=== PATIENT | female | born 1950 | race Caucasian/White ===

== ENCOUNTER → 2017-06-16 | Outpatient (CLI) | payer BC ==
[~2017-06-16] MED LIST: AMLO10CA PO; ATEN50TA8 PO
--- NOTE | 2017-06-17 14:02 | MAMMOGRAPHY REPORT ---
BILATERAL DIGITAL SCREENING MAMMOGRAM TOMOSYNTHESIS WITH CAD: 06/16/2017 CLINICAL HISTORY: Routine screening. Patient has no complaints. TECHNIQUE: Breast tomosynthesis in addition to standard 2D mammography was performed. Current study was also evaluated with a Computer Aided Detection (CAD) system. COMPARISON: Comparison is made to exams dated: 06/12/2016 mammogram, 05/14/2015 mammogram, 05/09/2014 mamm ogram, 05/08/2013 mammogram, 05/03/2012 mammogram, and 04/29/2012 mammogram - [facility] BREAST COMPOSITION: There are scattered areas of fibroglandular density in both breasts. FINDINGS: No suspicious masses, calcifications, or areas of architectural distortion are noted in ei ther breast. There has been no significant interval change compared to prior exams. IMPRESSION: ACR BI-RADS CATEGORY 1: NEGATIVE There is no mammographic evidence of malignancy. A 1 year screening mammogram is recommended. The pa tient will receive written notification of the results. Approximately 10% of breast cancers are not detected with mammography. A negative mammographic report should not delay biopsy if a clinically suggestive mass is present. Jacqueline Trejo M.D. /:06/16/2017 16:28:16 Engagement Specialist: Mindy Linares [facility] letter sent: Normal 1/2 BI-RADS Code: ACR BI-RADS Category 1: Negative
== END | disposition home or self-care (01) ==
LOC: C.MAMM 07:51
PROVIDERS: ATTEND Nurse Practitioner Adult Health
DX: Z12.31 Encounter for screening mammogram for malignant neoplasm of breast (principal)

== ENCOUNTER → 2017-06-23 | Outpatient (CLI) | payer BC ==
[2017-06-23 17:49] LABS: BLOOD UREA NITROGEN 7 mg/dl (7-18); BUN/CREATININE RATIO 12.9 (10-20); CREATININE 0.56 mg/dl (0.60-1.20)
[2017-06-30 21:38] LABS: ANTI-CENTROMERE AB <1.0 NEG AI (<1.0 NEG); ANTI-SS-A <1.0 NEG AI (<1.0 NEG); ANTI-SS-B <1.0 NEG AI (<1.0 NEG); DNA ds CRITHIDIA NEGATIVE (NEGATIVE); MICROSOMAL AB 628 IU/ML (<9); Sm Antibody <1.0 NEG AI (<1.0 NEG)
[2017-07-02 09:02] LABS: ANA TITER 1:40 TITER (<1:40)
== END | disposition home or self-care (01) ==
LOC: C.LAB1850 15:52
PROVIDERS: ATTEND Internal Medicine Infectious Disease
DX: G62.9 Polyneuropathy, unspecified (principal); G37.9 Demyelinating disease of central nervous system, unspecified

== ENCOUNTER → 2017-07-01 | Outpatient (CLI) | payer BC ==
[~2017-07-01] MED LIST changes: +GADAVIST IV PRN
--- NOTE | 2017-07-01 09:35 | DIAGNOSTIC IMAGING REPORT ---
BRAIN COMBO FOR MS CLINICAL HISTORY: Demyelinating disorder. COMPARISON STUDY: No previous studies for comparison. TECHNIQUE: Utilizing a 1.5 Diane magnet and dedicated coil, multiplanar, multiecho imaging of the brain was performed pre and postcontrast administration. Injection of 5.5 cc of Gadavist IV was uneventful. This exam was performed according to multiple sclerosis protocol. FINDINGS: There are no areas of restricted diffusion. No acute intracranial hemorrhage, midline shift or mass effect is present. Ventricular system is normal. Basilar cisterns are patent. There is no extra-axial collections. Flow-voids for the major intracranial vessels are present. There is no intracranial mass or pathologic enhancement. Faint linear enhancement within the right aspect of the deshawn could reflect a developmental venous anomaly or capillary telangiectasia. This is of no clinical significance. There are multiple supratentorial white matter T2 hyperintense foci. These are nonspecific and may reflect small vessel disease. No signal abnormalities are identified within the infratentorial brain. Calvarial signal is maintained. Orbits are unremarkable. Mild mucosal thickening of the left anterior ethmoid air cells is noted. IMPRESSION: 1. No acute intracranial findings. 2. No intracranial mass or pathologic enhancement. 3. Multiple supratentorial white matter T2 hyperintense foci. These are nonspecific and statistically reflect small vessel disease. Demyelinating disorders are within the differential although there are no findings to strongly suggest multiple sclerosis on this exam. Electronically signed by: Shawn Anaya M.D. 07/01/2017 9:33 AM Dictated Date/Time: 07/01/2017 9:24 AM
== END | disposition home or self-care (01) ==
LOC: C.MRI 08:09
PROVIDERS: ATTEND Internal Medicine Infectious Disease
DX: G37.9 Demyelinating disease of central nervous system, unspecified (principal)

== ENCOUNTER → 2017-07-15 | Outpatient (CLI) | payer BC ==
[~2017-07-15] MED LIST changes: -GADAVIST IV PRN
[2017-07-15 12:15] LABS: BASO % 2.6 %; BASO ABS # 0.19 K/uL (0-0.2); COMPLETE YES; EOS % 2.1 %; HEMATOCRIT 46.1 % (37-47); IG% 0.1 %; LYMPH % 47.6 %; LYMPH ABS # 3.41 K/uL (1.2-3.4); MEAN CELL VOLUME 91.5 fL (80-100); MEAN CORPUSCULAR HEMOGLOBIN 30.8 pg (25-34); MEAN CORPUSCULAR HGB CONC 33.6 g/dl (32-36); MEAN PLATELET VOLUME 10.4 fL (7.4-10.4); MONO % 11.4 %; NEUT % 36.2 %; PLATELET COUNT 262 K/uL (130-400); RED BLOOD COUNT 5.04 M/uL (4.2-5.4); WHITE BLOOD COUNT 7.17 K/uL (4.8-10.8)
[2017-07-15 12:51] LABS: C-REACTIVE PROTEIN < 0.29 mg/dl (0-0.29)
[2017-07-15 14:39] LABS: LYME DISEASE AB IGG POS (NEG); LYME DISEASE AB IGM EQUIVOCAL (NEG)
[2017-07-17 12:30] LABS: ALBUMIN 4.7 G/DL (3.8-4.8); B2 GLYCOPROTEIN IGA <9 SAU (<=20); B2 GLYCOPROTEIN IGG <9 SGU (<=20); B2 GLYCOPROTEIN IGM <9 SMU (<=20); DRVVT MIX INTERPRETAION Not Indicated; IMMUNOFIXATION IGA SERUM 295 MG/DL (81-463); IMMUNOFIXATION IGG SERUM 2081 MG/DL (694-1618); IMMUNOFIXATION IGM SERUM 222 MG/DL (48-271); LAC PTT SCREEN 35 sec (<=40); TOTAL PROTEIN 8.3 G/DL (6.2-8.3)
[2017-07-19 15:22] LABS: 18KDIGG BAND REACTIVE (NONREACTIVE); 23KDIGG BAND NONREACTIVE (NONREACTIVE); 23KDIGM BAND REACTIVE (NONREACTIVE); 28KDIGG BAND NONREACTIVE (NONREACTIVE); 30KDIGG BAND NONREACTIVE (NONREACTIVE); 39KDIGG BAND REACTIVE (NONREACTIVE); 39KDIGM BAND REACTIVE (NONREACTIVE); 41KDIGG BAND REACTIVE (NONREACTIVE); 41KDIGM BAND REACTIVE (NONREACTIVE); 45KDIGG BAND NONREACTIVE (NONREACTIVE); 58KDIGG BAND REACTIVE (NONREACTIVE); 66KDIGG BAND REACTIVE (NONREACTIVE); 93KDIGG BAND REACTIVE (NONREACTIVE)
== END | disposition home or self-care (01) ==
LOC: C.LAB1850 10:52
PROVIDERS: ATTEND Internal Medicine
DX: R89.4 Abnormal immunological findings in specimens from other organs, systems and tissues (principal); R20.2 Paresthesia of skin; C91.Z0 Other lymphoid leukemia not having achieved remission

== ENCOUNTER → 2018-01-13 | Outpatient (CLI) | payer OTHER ==
[2018-01-13 10:04] LABS: BASO ABS # 0.23 K/uL (0-0.2); EOS % 2.5 %; EOS ABS # 0.19 K/uL (0-0.5); HEMATOCRIT 45.1 % (37-47); HEMOGLOBIN 16.3 g/dL (12.0-16.0); IG# 0.01 K/uL (0.00-0.02); LYMPH % 27.4 %; LYMPH ABS # 2.09 K/uL (1.2-3.4); MEAN CELL VOLUME 90.7 fL (80-100); MEAN CORPUSCULAR HEMOGLOBIN 32.8 pg (25-34); MEAN CORPUSCULAR HGB CONC 36.1 g/dl (32-36); MEAN PLATELET VOLUME 10.7 fL (7.4-10.4); MONO % 26.5 %; MONO ABS # 2.02 K/uL (0.11-0.59); NEUT % 40.5 %; NEUT ABS # 3.08 K/uL (1.4-6.5); PLATELET COUNT 259 K/uL (130-400); RED CELL DISTRIBUTION WIDTH CV 13.2 % (11.5-14.5); RED CELL DISTRIBUTION WIDTH SD 43.8 fL (36.4-46.3); WHITE BLOOD COUNT 7.62 K/uL (4.8-10.8)
[2018-01-13 10:31] LABS: ALBUMIN 3.6 gm/dl (3.4-5.0); ALT/SGPT 64 U/L (12-78); BLOOD UREA NITROGEN 8 mg/dl (7-18); CALCIUM 9.1 mg/dl (8.5-10.1); CARBON DIOXIDE 26 mmol/L (21-32); CREATININE 0.62 mg/dl (0.60-1.20); GLUCOSE 96 mg/dl (70-99); POTASSIUM 4.1 mmol/L (3.5-5.1); SODIUM 129 mmol/L (136-145)
[2018-01-13 10:34] LABS: ALKALINE PHOSPHATASE 103 U/L (45-117); AST/SGOT 64 U/L (15-37); TOTAL PROTEIN 8.3 gm/dl (6.4-8.2)
== END | disposition home or self-care (01) ==
LOC: C.LAB1850 09:00
PROVIDERS: ATTEND Internal Medicine Hematology & Oncology
DX: C91.Z0 Other lymphoid leukemia not having achieved remission (principal); F10.20 Alcohol dependence, uncomplicated; E51.11 Dry beriberi; I10 Essential (primary) hypertension; Z72.0 Tobacco use

== ENCOUNTER → 2018-06-20 | Outpatient (CLI) | payer OTHER ==
--- NOTE | 2018-06-20 13:10 | MAMMOGRAPHY REPORT ---
BILATERAL DIGITAL SCREENING MAMMOGRAM TOMOSYNTHESIS WITH CAD: 06/20/2018 CLINICAL HISTORY: Routine screening. Patient has no complaints. TECHNIQUE: The study was acquired using full field digital technology and interpreted from soft copy. Breast tomosynthesis in addition to standard 2D mammography was performed. Current study was also ev aluated with a Computer Aided Detection (CAD) system. COMPARISON: Comparison is made to exams dated: 06/16/2017 mammogram, 06/12/2016 mammogram, 05/14/2015 mamm ogram, 05/09/2014 mammogram, 05/08/2013 mammogram, and 05/03/2012 mammogram - [facility] . BREAST COMPOSITION: There are scattered areas of fibroglandular density in both breasts. FINDINGS: There are stable focal asymmetries in each upper outer quadrant. Benign rim calcifications in the right breast. No suspicious mass, architectural distortion or cluster of microcalcifications is seen. IMPRESSION: ACR BI-RADS CATEGORY 1: NEGATIVE There is no mammographic evidence of malignancy. A 1 year screening mammogram is recommended.( [id number]) The patient will receive written notification of the results. Some breast cancers are not detected with mammography. A negative mammographic report should not ryan y biopsy if a clinically suggestive mass is present. Agnse Ji M.D. ay/:06/20/2018 09:29:20 Desktop Engineer: RT Elvia(R)(M), [facility] letter sent: Normal 1/2 BI-RADS Code: ACR BI-RADS Category 1: Negative
== END | disposition home or self-care (01) ==
LOC: C.MAMM 08:04
PROVIDERS: ATTEND Nurse Practitioner Adult Health
DX: Z12.31 Encounter for screening mammogram for malignant neoplasm of breast (principal)

== ENCOUNTER 2021-06-23 14:29 | Inpatient (IN) ==
--- NOTE | 2021-06-23 16:01 | Emergency Department Note ---
Impression & Plan Acute hyponatremia, Left arm weakness, Alcohol use, Weakness, Falling ED Provider Note NAME: SALINA HAQUE AGE: 70 SEX: F : 1950 ARRIVES VIA: Walk-In INFORMANT: [Patient][sister] ED PROVIDER(S): [Irving Serrato MD] Patient first seen by me at 1545 CHIEF COMPLAINT: Weakness HISTORY OF PRESENT ILLNESS: The patient is a 70-year-old female who presents with months of weakness which seems to be escalating. She has fallen several times. She has abrasions and so me skin tears to her extremities. She primarily has noticed some weakness in the left arm especially, the distal left arm. No facial droop, no speech slur. She has not had any drooling. She denies any issues with her left leg. The patient denies fever. No cough or congestion or shortness of breath. No headache. She has lost weight. The patient does not have any current diarrhea although a month ago, she was having diarrhea. No vomiting. The patient was brought today by her family as they are very concerned about her increasing weakness and her falling. As per her family, she has has been somewhat confused at times. On further questioning, the patient drinks at least 4 beers daily. REVIEW OF SYSTEMS: See HPI for pertinent positives and negatives. A total of ten systems were reviewed and were otherwise negative. PMHx/PSHx: See Below SOCIAL HISTORY: See Below. PHYSICAL EXAM: GENERAL: Patient is in no acute distress. HEENT: No acute trauma, normocephalic atraumatic, mucous membranes moist, no nasal congestion, no scleral icterus. NECK: No stridor, no adenopathy, no meningismus, trachea is midline. LUNGS: Diminished breath sounds bilaterally, no wheezing or rhonchi, breath sounds are equal. No respiratory distress. HEART: Without murmurs gallops or rubs, regular rate and rhythm. ABDOMEN: Soft, nontender, bowel sounds positive, no hernias, no peritonitis. EXTREMITIES: No cyanosis. The patient has some edema of her left hand. She cannot extend the left wrist and has difficulty extending her left elbow. Flexion of the elbow and wrist seems intact. Left shoulder shrug is intact and equal to the right. No gross deformity to the left upper extremity. She has skin tears to her extremities, no signs of surrounding erythema to suggest infection. Contusions of different ages are noted to her extremities as well. NEUROLOGIC: Oriented x 3, no deficits to the lower extremities. No facial droop or speech slur. She has difficulty with extension of the left wrist and left elbow. Flexion of the left elbow appears intact. Shoulder shrug on the left is intact. Hand grasp is a bit weak on the left but she does have this function. SKIN: No rash, no jaundice, no diaphoresis. DIFFERENTIAL DIAGNOSIS: Infection, dehydration, metabolic abnormality, hypo/hyperglycemia, electrolyte disturbance, malignancy, radial nerve palsy, anemia, hypoxia, cardiac sources, intracerebral event, toxicologic issues, stroke, TIA, as well as other pathologies. EMERGENCY DEPARTMENT COURSE/PROCEDURES: ECG: Indication was weakness. The ECG shows a normal sinus rhythm with some baseline artifact. There are some inverted T waves in the anterior leads. No ST elevation, no PVCs. The rate is 69. The QTc is 477. Continuous Cardiac Monitoring: An order was placed for continuous cardiac monitoring. The monitor shows a rate of 80 with normal sinus rhythm. Critical Care Note: I have personally spent 35 minutes of critical care time in the direct management of this patient. This includes bedside care, interpretation of diagnostic studies, and testing, discussion with consultants, patient, and family members, and other required patient management activities. This 35 minutes is in excess of all separately billable procedures. MEDICAL DECISION MAKING: There is no leukocytosis or concerning anemia. There is a normal platelet count. No coagulopathy. Sodium is quite low at 126. No kidney failure. Lactic acid level was elevated consistent with infection versus dehydration. No concerning elevation to the total CK. LFTs were somewhat elevated consistent potentially with alcohol use. The patient had a higher TSH but the T4 was normal. Urinalysis did not show infection. Alcohol level was elevated at 87. Covid testing is pending. Chest x-ray did not show pneumonia or CHF. Brain CT showed no acute bleed or mass-effect. CT angio of the head and neck did not show any significant stenosis or clot. An incidental aneurysm was seen in the neck. Films of the left elbow, left forearm left first were done, there was no fracture. On exam, the patient was frail, she had multiple areas of skin tear to her extremities. She had different age contusions on her extremities. She appeared to have at least a left radial nerve palsy. The patient is in need of a hospital stay. She has multiple findings that warrant care inside the hospital. She is not safe for discharge home. I did speak with her and her sister about my findings. I did talk to case management. The on-call hospitalist was consulted. During the patient's ED stay, she was given a banana bag, this consisted of IV saline, multivitamins and thiamine and folate. Past Med/Surg History Medical History Hypertension Impaired memory per pt, feels she is getting very forgetful Poor historian Pt reports she is slow to wake up after anesthesia. After asking the questions, no surgeries were reported. So then asked her specifically "what all surgeries have you had?" She states, "I'm not really sure, I had something to check something, but I don't know what it was." Surgical History No history of previous surgery pt unsure Family History Other Unknown family medical history Social History Smoking Status: Current every day smoker Cigarettes Per Day: 2 ppd; Second Hand Exposure: Yes; Hx Alcohol Use: Yes Alcohol type: beer Hx Substance Use: No Preferred Language: Tongan Communication Ability: Effective [employer] Associate Required: No Beliefs That Will Affect Care: None Current Living Situation: Alone Feels Safe at Home: Yes Assistive Devices: Glasses Allergies Allergies Allergy/AdvReac Type Severity Reaction Status Date / Time clindamycin Allergy Unknown RASH Verified 06/23/21 16:34 Penicillins Allergy Unknown RASH Verified 06/23/21 16:34 Home Meds Home Medications Medication Instructions Recorded Confirmed amlodipine 10 mg tablet 10 mg PO QAM 06/11/21 06/23/21 atenolol 50 mg tablet 50 mg PO QAM 06/11/21 06/23/21 benazepril 20 mg tablet 20 mg PO QAM 06/11/21 06/23/21 Results & Data (ED) Vital Signs Vital Signs - 24 hr 06/23/21 14:35 06/23/21 15:35 06/23/21 15:40 Temperature 36.3 C L Temperature Source Temporal Artery Scan Pulse Rate 83 75 Pulse Rate [Apical] 80 Pulse Rhythm [Apical] Regular Respiratory Rate 18 16 16 Respiratory Effort / Characteristics Non-Labored Spontaneous Non-Labored Respiratory Depth Normal Normal Blood Pressure 121/79 105/68 Blood Pressure [Right Arm] 105/68 Blood Pressure Mean 93 80 Blood Pressure Mean [Right Arm] 80 Pulse Oximetry 94 96 97 Oxygen Delivery Method Room Air Room Air Sepsis Recent Fever Within 48 Hours No Sepsis New/Unexplained Change in Mental Status N/A Sepsis Action Taken by Nursing No Action Required 06/23/21 15:58 06/23/21 16:52 06/23/21 17:06 Temperature Temperature Source Pulse Rate 89 75 Pulse Rate [Apical] Pulse Rhythm [Apical] Respiratory Rate 14 16 Respiratory Effort / Characteristics Respiratory Depth Blood Pressure 101/63 Blood Pressure [Right Arm] Blood Pressure Mean 75 Blood Pressure Mean [Right Arm] Pulse Oximetry 98 95 Oxygen Delivery Method Room Air Sepsis Recent Fever Within 48 Hours Sepsis New/Unexplained Change in Mental Status Sepsis Action Taken by Long Term Medications Current Medication List: was personally reviewed by me Laboratory Data Attestation: I reviewed the patient's lab results. Result diagrams: 06/23/21 15:40 06/23/21 15:40 Lab Results 06/23/21 06/23/21 06/23/21 Range/Units 15:40 15:40 15:40 WBC 5.58 (4.8-10.8) K/uL RBC 3.92 L (4.2-5.4) M/uL Hgb 13.2 (12.0-16.0) g/dL Hct 36.5 L (37-47) % MCV 93.1 (80-100) fL MCH 33.7 (25-34) pg MCHC 36.2 H (32-36) g/dL RDW Std Deviation 47.7 H (36.4-46.3) fL RDW Coeff of Eriberto 14.0 (11.5-14.5) % Plt Count 197 (130-400) K/uL MPV 10.6 H (7.4-10.4) fL Immature Gran % (Auto) 0.2 % Neut % (Auto) 43.4 % Lymph % (Auto) 36.0 % Glades % (Auto) 17.2 % Eos % (Auto) 0.5 % Baso % (Auto) 2.7 % Neut # (Auto) 2.42 (1.4-6.5) K/uL Lymph # (Auto) 2.01 (1.2-3.4) K/uL Glades # (Auto) 0.96 H (0.11-0.59) K/uL Eos # (Auto) 0.03 (0-0.5) K/uL Baso # (Auto) 0.15 (0-0.2) K/uL Immature Gran # (Auto) 0.01 (0.00-0.02) K/uL PT 10.9 (9.0-12.0) Seconds INR 1.1 (0.9-1.1) APTT 27.6 (21.0-31.0) Seconds PTT Ratio 1.0 Sodium 126 L (136-145) mmol/L Potassium 3.6 (3.5-5.1) mmol/L Chloride 94 L (98-107) mmol/L Carbon Dioxide 26 (21-32) mmol/L Anion Gap 6.0 (3-11) BUN 2 L (7-18) mg/dl Creatinine 0.39 L (0.6-1.2) mg/dl Est Cr Clr Drug Dosing 106.8 ml/min Est GFR ( Amer) 125.1 ml/min Est GFR (Non-Af Amer) 107.9 ml/min BUN/Creatinine Ratio 5.6 L (10-20) Glucose 78 (70-99) mg/dl Lactate (0.4-2.0) mmol/L Calcium 8.5 (8.5-10.1) mg/dl Magnesium 2.4 (1.8-2.4) mg/dl Total Bilirubin 0.8 (0.2-1) mg/dl AST 138 H (15-37) U/L ALT 89 H (12-78) U/L Alkaline Phosphatase 140 H (45-117) U/L Total Creatine Kinase 418 H (26-192) U/L Troponin I < 0.015 (0-0.045) ng/ml Total Protein 7.3 (6.4-8.2) gm/dl Albumin 3.1 L (3.4-5.0) gm/dl Globulin 4.2 H (2.5-4.0) gm/dl Albumin/Globulin Ratio 0.7 L (0.9-2) TSH 6.420 H (0.300-4.500) uIu/ml Free T4 0.80 (0.8-1.6) ng/dl Urine Color Urine Appearance (Clear) Urine pH (4.5-7.5) Ur Specific [place] (1.000-1.030) Urine Protein (Negative) Urine Glucose (UA) (Negative) Urine Ketones (Negative) Urine Blood (Negative) Urine Nitrite (Negative) Urine Bilirubin (Negative) Urine Urobilinogen (Negative) Ur Leukocyte Esterase (Negative) Ethyl Alcohol mg/dL (0-3) mg/dl COVID-19 Eval Order 06/23/21 06/23/21 06/23/21 Range/Units 16:30 16:30 16:40 WBC (4.8-10.8) K/uL RBC (4.2-5.4) M/uL Hgb (12.0-16.0) g/dL Hct (37-47) % MCV (80-100) fL MCH (25-34) pg MCHC (32-36) g/dL RDW Std Deviation (36.4-46.3) fL RDW Coeff of Eriberto (11.5-14.5) % Plt Count (130-400) K/uL MPV (7.4-10.4) fL Immature Gran % (Auto) % Neut % (Auto) % Lymph % (Auto) % Glades % (Auto) % Eos % (Auto) % Baso % (Auto) % Neut # (Auto) (1.4-6.5) K/uL Lymph # (Auto) (1.2-3.4) K/uL Glades # (Auto) (0.11-0.59) K/uL Eos # (Auto) (0-0.5) K/uL Baso # (Auto) (0-0.2) K/uL Immature Gran # (Auto) (0.00-0.02) K/uL PT (9.0-12.0) Seconds INR (0.9-1.1) APTT (21.0-31.0) Seconds PTT Ratio Sodium (136-145) mmol/L Potassium (3.5-5.1) mmol/L Chloride (98-107) mmol/L Carbon Dioxide (21-32) mmol/L Anion Gap (3-11) BUN (7-18) mg/dl Creatinine (0.6-1.2) mg/dl Est Cr Clr Drug Dosing ml/min Est GFR ( Amer) ml/min Est GFR (Non-Af Amer) ml/min BUN/Creatinine Ratio (10-20) Glucose (70-99) mg/dl Lactate 2.4 H* (0.4-2.0) mmol/L Calcium (8.5-10.1) mg/dl Magnesium (1.8-2.4) mg/dl Total Bilirubin (0.2-1) mg/dl AST (15-37) U/L ALT (12-78) U/L Alkaline Phosphatase (45-117) U/L Total Creatine Kinase (26-192) U/L Troponin I (0-0.045) ng/ml Total Protein (6.4-8.2) gm/dl Albumin (3.4-5.0) gm/dl Globulin (2.5-4.0) gm/dl Albumin/Globulin Ratio (0.9-2) TSH (0.300-4.500) uIu/ml Free T4 (0.8-1.6) ng/dl Urine Color Yellow Urine Appearance Clear (Clear) Urine pH 6.5 (4.5-7.5) Ur Specific [place] 1.002 (1.000-1.030) Urine Protein Negative (Negative) Urine Glucose (UA) Negative (Negative) Urine Ketones Negative (Negative) Urine Blood Negative (Negative) Urine Nitrite Negative (Negative) Urine Bilirubin Negative (Negative) Urine Urobilinogen Negative (Negative) Ur Leukocyte Esterase Negative (Negative) Ethyl Alcohol mg/dL 87.0 H (0-3) mg/dl COVID-19 Eval Order 06/23/21 Range/Units 17:50 WBC (4.8-10.8) K/uL RBC (4.2-5.4) M/uL Hgb (12.0-16.0) g/dL Hct (37-47) % MCV (80-100) fL MCH (25-34) pg MCHC (32-36) g/dL RDW Std Deviation (36.4-46.3) fL RDW Coeff of Eriberto (11.5-14.5) % Plt Count (130-400) K/uL MPV (7.4-10.4) fL Immature Gran % (Auto) % Neut % (Auto) % Lymph % (Auto) % Glades % (Auto) % Eos % (Auto) % Baso % (Auto) % Neut # (Auto) (1.4-6.5) K/uL Lymph # (Auto) (1.2-3.4) K/uL Glades # (Auto) (0.11-0.59) K/uL Eos # (Auto) (0-0.5) K/uL Baso # (Auto) (0-0.2) K/uL Immature Gran # (Auto) (0.00-0.02) K/uL PT (9.0-12.0) Seconds INR (0.9-1.1) APTT (21.0-31.0) Seconds PTT Ratio Sodium (136-145) mmol/L Potassium (3.5-5.1) mmol/L Chloride (98-107) mmol/L Carbon Dioxide (21-32) mmol/L Anion Gap (3-11) BUN (7-18) mg/dl Creatinine (0.6-1.2) mg/dl Est Cr Clr Drug Dosing ml/min Est GFR ( Amer) ml/min Est GFR (Non-Af Amer) ml/min BUN/Creatinine Ratio (10-20) Glucose (70-99) mg/dl Lactate (0.4-2.0) mmol/L Calcium (8.5-10.1) mg/dl Magnesium (1.8-2.4) mg/dl Total Bilirubin (0.2-1) mg/dl AST (15-37) U/L ALT (12-78) U/L Alkaline Phosphatase (45-117) U/L Total Creatine Kinase (26-192) U/L Troponin I (0-0.045) ng/ml Total Protein (6.4-8.2) gm/dl Albumin (3.4-5.0) gm/dl Globulin (2.5-4.0) gm/dl Albumin/Globulin Ratio (0.9-2) TSH (0.300-4.500) uIu/ml Free T4 (0.8-1.6) ng/dl Urine Color Urine Appearance (Clear) Urine pH (4.5-7.5) Ur Specific [place] (1.000-1.030) Urine Protein (Negative) Urine Glucose (UA) (Negative) Urine Ketones (Negative) Urine Blood (Negative) Urine Nitrite (Negative) Urine Bilirubin (Negative) Urine Urobilinogen (Negative) Ur Leukocyte Esterase (Negative) Ethyl Alcohol mg/dL (0-3) mg/dl COVID-19 Eval Order Covid19 at [facility] Administered Medications Discontinued Medications Ioversol (Optiray 320 125ml) 120 ml IV ONCE ONE Stop: 06/23/21 16:43 Last Admin: 06/23/21 16:42 Dose: 120 ml Documented by: [id number] Imaging Data Radiologist's Impression: Chest X-Ray 06/23/21 15:58 XR chest 1V portable HISTORY: weakness COMPARISON: Chest 07/16/2006. FINDINGS: No pneumothorax. No pleural effusions. Mild interstitial thickening at the lung bases. This is likely chronic. There is a linear scarlike density within the right lower lobe. The heart is normal in size. The lungs are hyperexpanded with apical predominant emphysematous changes. No new focal lung consolidations to suggest pneumonia. No evidence for pulmonary edema. IMPRESSION: No significant change compared to the prior study. No acute process. ACT 112: Negative or not required by law. Electronically signed by: Romeo Jha M.D. 06/23/2021 4:[address] 06/23/21 15:[address] OF THE BRAIN; CT ANGIOGRAM OF THE BRAIN; CT ANGIOGRAM OF THE NECK CLINICAL HISTORY: Left-sided weakness and numbness. COMPARISON STUDY: MRI of the brain dated 07/01/2017. TECHNIQUE: Unenhanced axial CT scan of the brain is performed. Subsequently, following the IV administration of 120 of Optiray 320, CT angiogram of the head and neck was performed from the aortic arch to the vertex. Images are reviewed i n the axial, sagittal, and coronal planes. 3-D MIPS images are created and assessed. IV contrast was administered without complication. All measurements were calculated based on NASCET criteria. A dose lowering technique was utilized adhering to the principles of ALARA. CT DOSE: 843.91 mGy.cm FINDINGS: Brain parenchyma: There is age-related involutional change noting mild to moderate patchy subcortical and periventricular microangiopathic disease. There is no hemorrhage, mass effect, or evidence of acute territorial ischemia by CT criteria. There is no evidence of enhancing mass lesion on the angiogram phase images. The ventricles, sulci, and cisterns are prominent secondary to involutional change. Lai-white matter differentiation is preserved. No extra- axial fluid collection is seen. Thoracic aorta: Visualized portions of the thoracic aorta are normal in caliber. The aortic arch demonstrates 4-vessel variant anatomy. The left vertebral artery arises directly from the thoracic aorta. Right carotid arterial system: The right common carotid artery is widely patent, as are the right internal and external carotid arteries. Minimal plaque is seen in the carotid bulb. Left carotid arterial system: The left common carotid artery is widely patent, as are the left internal and external carotid arteries. Mild plaque is noted in the carotid bulb. Vertebral arteries: The vertebral arteries are widely patent bilaterally noting a right-sided dominance. 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 This is located at the level of C7. Subclavian arteries: Widely patent bilaterally. Intracranial vasculature: There is atherosclerotic calcification of the cavernous carotid arteries. There is a large right posterior indicating artery. There is ectasia of the internal carotid arteries bilaterally. The internal carotid arteries are patent at the skull base, as are the anterior and middle cerebral arteries bilaterally. The vertebrobasilar system and posterior cerebral arteries are widely patent. The right P1 segment is diminutive. The right vertebral artery is dominant. No definite aneurysm is identified. There is no high-grade stenosis or focal vessel cutoff identified. Jugular veins: Patent bilaterally. Dural sinuses: Patent. Lung apices: Emphysematous change is noted. Upper lobe lung parenchyma is otherwise clear as imaged. Soft tissues: The visualized pharyngeal soft tissues are normal in appearance noting angiographic phase technique. The oropharyngeal airway appears widely patent. The salivary and thyroid glands are normal in appearance. No cervical lymphadenopathy is seen. Skeletal structures: The skeletal structures are osteopenic. The calvarium ap pears intact. The cervical spine is maintained noting mild multilevel spondylosis. No lytic or blastic lesion is seen. Orbits: The bony orbits are intact. Orbital contents are normal as visualized. Sinuses and mastoids: The paranasal sinuses are clear. The mastoid air cells are well pneumatized. IMPRESSION: 1. There is no hemorrhage, mass effect, or evidence of acute territorial ischemia by CT criteria. 2. Unremarkable CT angiogram of the brain. 3. 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 4. Otherwise unremarkable CT angiogram of the neck. 5. Emphysema. ACT 112: Negative or not required by law. Electronically signed by: Irving Lopez M.D. 06/23/2021 5:09 PM Head CTA 06/23/21 15:[address] OF THE BRAIN; CT ANGIOGRAM OF THE BRAIN; CT ANGIOGRAM OF THE NECK CLINICAL HISTORY: Left-sided weakness and numbness. COMPARISON STUDY: MRI of the brain dated 07/01/2017. TECHNIQUE: Unenhanced axial CT scan of the brain is performed. Subsequently, following the IV administration of 120 of Optiray 320, CT angiogram of the head and neck was performed from the aortic arch to the vertex. Images are reviewed in the axial, sagittal, and coronal planes. 3-D MIPS images are created and assessed. IV contrast was administered without complication. All measurements were calculated based on NASCET criteria. A dose lowering technique was utilized adhering to the principles of ALARA. CT DOSE: 843.91 mGy.cm FINDINGS: Brain parenchyma: There is age-related involutional change noting mild to moderate patchy subcortical and periventricular microangiopathic disease. There is no hemorrhage, mass effect, or evidence of acute territorial ischemia by CT criteria. There is no evidence of enhancing mass lesion on the angiogram phase images. The ventricles, sulci, and cisterns are prominent secondary to involutional change. Lai-white matter differentiation is preserved. No extra- axial fluid collection is seen. Thoracic aorta: Visualized portions of the thoracic aorta are normal in caliber. The aortic arch demonstrates 4-vessel variant anatomy. The left vertebral artery arises directly from the thoracic aorta. Right carotid arterial system: The right common carotid artery is widely patent, as are the right internal and external carotid arteries. Minimal plaque is seen in the carotid bulb. Left carotid arterial system: The left common carotid artery is widely patent, as are the left internal and external carotid arteries. Mild plaque is noted in the carotid bulb. Vertebral arteries: The vertebral arteries are widely patent bilaterally noting a right-sided dominance. 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 This is located at the level of C7. Subclavian arteries: Widely patent bilaterally. Intracranial vasculature: There is atherosclerotic calcification of the cavernous carotid arteries. There is a large right posterior indicating artery. There is ectasia of the internal carotid arteries bilaterally. The internal carotid arteries are patent at the skull base, as are the anterior and middle cerebral arteries bilaterally. The vertebrobasilar system and posterior cerebral arteries are widely patent. The right P1 segment is diminutive. The right vertebral artery is dominant. No definite aneurysm is identified. There is no high-grade stenosis or focal vessel cutoff identified. Jugular veins: Patent bilaterally. Dural sinuses: Patent. Lung apices: Emphysematous change is noted. Upper lobe lung parenchyma is otherwise clear as imaged. Soft tissues: The visualized pharyngeal soft tissues are normal in appearance noting angiographic phase technique. The oropharyngeal airway appears widely patent. The salivary and thyroid glands are normal in appearance. No cervical lymphadenopathy is seen. Skeletal structures: The skeletal structures are osteopenic. The calvarium appears intact. The cervical spine is maintained noting mild multilevel spondylosis. No lytic or blastic lesion is seen. Orbits: The bony orbits are intact. Orbital contents are normal as visualized. Sinuses and mastoids: The paranasal sinuses are clear. The mastoid air cells are well pneumatized. IMPRESSION: 1. There is no hemorrhage, mass effect, or evidence of acute territorial ischemia by CT criteria. 2. Unremarkable CT angiogram of the brain. 3. 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 4. Otherwise unremarkable CT angiogram of the neck. 5. Emphysema. ACT 112: Negative or not required by law. Electronically signed by: Irving Lopez M.D. 06/23/2021 5:09 PM Neck CTA 06/23/21 15:[address] OF THE BRAIN; CT ANGIOGRAM OF THE BRAIN; CT ANGIOGRAM OF THE NECK CLINICAL HISTORY: Left-sided weakness and numbness. COMPARISON STUDY: MRI of the brain dated 07/01/2017. TECHNIQUE: Unenhanced axial CT scan of the brain is performed. Subsequently, following the IV administration of 120 of Optiray 320, CT angiogram of the head and neck was performed from the aortic arch to the vertex. Images are reviewed in the axial, sagittal, and coronal planes. 3-D MIPS images are created and assessed. IV contrast was administered without complication. All measurements were calculated based on NASCET criteria. A dose lowering technique was utilized adhering to the principles of ALARA. CT DOSE: 843.91 mGy.cm FINDINGS: Brain parenchyma: There is age-related involutional change noting mild to moder ate patchy subcortical and periventricular microangiopathic disease. There is no hemorrhage, mass effect, or evidence of acute territorial ischemia by CT criteria. There is no evidence of enhancing mass lesion on the angiogram phase images. The ventricles, sulci, and cisterns are prominent secondary to involutional change. Lai-white matter differentiation is preserved. No extra- axial fluid collection is seen. Thoracic aorta: Visualized portions of the thoracic aorta are normal in caliber. The aortic arch demonstrates 4-vessel variant anatomy. The left vertebral artery arises directly from the thoracic aorta. Right carotid arterial system: The right common carotid artery is widely patent, as are the right internal and external carotid arteries. Minimal plaque is seen in the carotid bulb. Left carotid arterial system: The left common carotid artery is widely patent, as are the left internal and external carotid arteries. Mild plaque is noted in the carotid bulb. Vertebral arteries: The vertebral arteries are widely patent bilaterally noting a right-sided dominance. 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 This is located at the level of C7. Subclavian arteries: Widely patent bilaterally. Intracranial vasculature: There is atherosclerotic calcification of the cavernou s carotid arteries. There is a large right posterior indicating artery. There is ectasia of the internal carotid arteries bilaterally. The internal carotid arteries are patent at the skull base, as are the anterior and middle cerebral arteries bilaterally. The vertebrobasilar system and posterior cerebral arteries are widely patent. The right P1 segment is diminutive. The right vertebral artery is dominant. No definite aneurysm is identified. There is no high-grade stenosis or focal vessel cutoff identified. Jugular veins: Patent bilaterally. Dural sinuses: Patent. Lung apices: Emphysematous change is noted. Upper lobe lung parenchyma is otherwise clear as imaged. Soft tissues: The visualized pharyngeal soft tissues are normal in appearance noting angiographic phase technique. The oropharyngeal airway appears widely patent. The salivary and thyroid glands are normal in appearance. No cervical lymphadenopathy is seen. Skeletal structures: The skeletal structures are osteopenic. The calvarium appears intact. The cervical spine is maintained noting mild multilevel spondylosis. No lytic or blastic lesion is seen. Orbits: The bony orbits are intact. Orbital contents are normal as visualized. Sinuses and mastoids: The paranasal sinuses are clear. The mastoid air cells are well pneumatized. IMPRESSION: 1. There is no hemorrhage, mass effect, or evidence of acute territorial ischemia by CT criteria. 2. Unremarkable CT angiogram of the brain. 3. 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 4. Otherwise unremarkable CT angiogram of the neck. 5. Emphysema. ACT 112: Negative or not required by law. Electronically signed by: Irving Lopez M.D. 06/23/2021 5:09 PM Elbow X-Ray 06/23/21 16:04 XR elbow LT min 3V routine, XR forearm LT 2V, XR wrist LT w scaphoid CLINICAL HISTORY: Fall. Left arm weakness and pain. Left elbow, forearm and wrist pain. COMPARISON STUDY: None. FINDINGS: Mild soft tissue swelling within the proximal posterior forearm/elbow. No elbow effusion. There is an old nonunited fracture at the ulnar styloid. No acute fracture or dislocation within the left elbow, left forearm, or left wrist. The bones are osteopenic. Mild dorsal soft tissue swelling within the wrist. The scaphoid appears intact. IMPRESSION: No acute fractures within the left forearm, left wrist, or left elbow. ACT 112: Negative or not required by law. Electronically signed by: Romeo Jha M.D. 06/23/2021 4:31 PM Forearm X-Ray 06/23/21 16:04 XR elbow LT min 3V routine, XR forearm LT 2V, XR wrist LT w scaphoid CLINICAL HISTORY: Fall. Left arm weakness and pain. Left elbow, forearm and wrist pain. COMPARISON STUDY: None. FINDINGS: Mild soft tissue swelling within the proximal posterior forearm/elbow. No elbow effusion. There is an old nonunited fracture at the ulnar styloid. No acute fracture or dislocation within the left elbow, left forearm, or left wrist. The bones are osteopenic. Mild dorsal soft tissue swelling within the wrist. The scaphoid appears intact. IMPRESSION: No acute fractures within the left forearm, left wrist, or left elbow. ACT 112: Negative or not required by law. Electronically signed by: Romeo Jha M.D. 06/23/2021 4:31 PM Wrist X-Ray 06/23/21 16:04 XR elbow LT min 3V routine, XR forearm LT 2V, XR wrist LT w scaphoid CLINICAL HISTORY: Fall. Left arm weakness and pain. Left elbow, forearm and wrist pain. COMPARISON STUDY: None. FINDINGS: Mild soft tissue swelling within the proximal posterior forearm/elbow. No elbow effusion. There is an old nonunited fracture at the ulnar styloid. No acute fracture or dislocation within the left elbow, left forearm, or left wrist. The bones are osteopenic. Mild dorsal soft tissue swelling within the wrist. The scaphoid appears intact. IMPRESSION: No acute fractures within the left forearm, left wrist, or left elbow. ACT 112: Negative or not required by law. Electronically signed by: Romeo Jha M.D. 06/23/2021 4:31 PM Head Trauma GCS Score: 15 Discharge Plan Visit Data Chief Complaint: Weakness Stated Complaint: L SIDE NUMBNESS ED Provider: Irving Serrato Discharge Problem: Acute hyponatremia, Left arm weakness, Alcohol use, Weakness, Falling Patient Disposition: Admitted As Inpatient Condition: Fair Forms Stand Alone Forms: [facility], [facility] Prescriptions Prescriptions: No Action amlodipine 10 mg Tablet 10 mg PO QAM RF: 0 benazepril 20 mg Tablet 20 mg PO QAM RF: 0 atenolol 50 mg Tablet 50 mg PO QAM RF: 0 Referrals Referrals: Virginia Barillas PA-C [Primary Care Provider] -
[2021-06-23 16:06] LABS: Basophils # (auto) 0.15 K/uL (0-0.2); Basophils % (auto) 2.7 %; Eosinophils # (auto) 0.03 K/uL (0-0.5); Eosinophils % (auto) 0.5 %; Hematocrit (blood only) 36.5 % (37-47); Hemoglobin 13.2 g/dL (12.0-16.0); Immature Granulocytes # (auto) 0.01 K/uL (0.00-0.02); Immature Granulocytes % (auto) 0.2 %; Lymphocytes # (auto) 2.01 K/uL (1.2-3.4); Mean Corpuscular Hemoglobin 33.7 pg (25-34); Mean Corpuscular Hgb Conc 36.2 g/dL (32-36); Mean Corpuscular Volume 93.1 fL (80-100); Mean Platelet Volume 10.6 fL (7.4-10.4); Monocytes # (auto) 0.96 K/uL (0.11-0.59); Monocytes % (auto) 17.2 %; Neutrophils # (auto) 2.42 K/uL (1.4-6.5); Neutrophils % (auto) 43.4 %; Platelet Count 197 K/uL (130-400); RDW Standard Deviation 47.7 fL (36.4-46.3); Red Blood Count 3.92 M/uL (4.2-5.4); White Blood Count 5.58 K/uL (4.8-10.8)
[2021-06-23 16:13] LABS: Alanine Aminotransferase 89 U/L (12-78); Albumin Level 3.1 gm/dl (3.4-5.0); Aspartate Aminotransferase 138 U/L (15-37); BUN Creatinine Ratio 5.6 (10-20); Blood Urea Nitrogen 2 mg/dl (7-18); Calcium 8.5 mg/dl (8.5-10.1); Carbon Dioxide 26 mmol/L (21-32); Chloride 94 mmol/L (98-107); Creatinine Clr Calc Pharmacy 106.8 ml/min; Est GFR (African American) 125.1 ml/min; Est GFR (Non-African American) 107.9 ml/min; Glucose 78 mg/dl (70-99); Magnesium 2.4 mg/dl (1.8-2.4); Potassium 3.6 mmol/L (3.5-5.1); Sodium 126 mmol/L (136-145)
[2021-06-23 16:17] LABS: INR 1.1 (0.9-1.1); Partial Thromboplastin Time 27.6 Seconds (21.0-31.0); Prothrombin Time 10.9 Seconds (9.0-12.0)
--- NOTE | 2021-06-23 16:21 | XRay Report ---
XR chest 1V portable HISTORY: weakness COMPARISON: Chest 07/16/2006. FINDINGS: No pneumothorax. No pleural effusions. Mild interstitial thickening at the lung bases. This is likely chronic. There is a linear scarlike density within the right lower lobe. The heart is norm al in size. The lungs are hyperexpanded with apical predominant emphysematous changes. No new focal l holli consolidations to suggest pneumonia. No evidence for pulmonary edema. IMPRESSION: No significant change compared to the prior study. No acute process. ACT 112: Negative or not required by law. Electronically signed by: Romeo Jha M.D. 06/23/2021 4:20 PM
[2021-06-23 16:24] LABS: Albumin Globulin Ratio 0.7 (0.9-2); Alkaline Phosphatase 140 U/L (45-117); Bilirubin,Total 0.8 mg/dl (0.2-1); Creatine Kinase 418 U/L (26-192); Globulin 4.2 gm/dl (2.5-4.0); Total Protein 7.3 gm/dl (6.4-8.2); Troponin I < 0.015 ng/ml (0-0.045)
--- NOTE | 2021-06-23 16:33 | XRay Report ---
XR elbow LT min 3V routine, XR forearm LT 2V, XR wrist LT w scaphoid CLINICAL HISTORY: Fall. Left arm weakness and pain. Left elbow, forearm and wrist pain. COMPARISON STUDY: None. FINDINGS: Mild soft tissue swelling within the proximal posterior forearm/elbow. No elbow effusion. T here is an old nonunited fracture at the ulnar styloid. No acute fracture or dislocation within the l eft elbow, left forearm, or left wrist. The bones are osteopenic. Mild dorsal soft tissue swelling wi thin the wrist. The scaphoid appears intact. IMPRESSION: No acute fractures within the left forearm, left wrist, or left elbow. ACT 112: Negative or not required by law. Electronically signed by: Romeo Jha M.D. 06/23/2021 4:31 PM
[2021-06-23] MEDS ORDERED: OPTIRAY 320 125ml IV ONE (16:42)
--- NOTE | 2021-06-23 16:42 | Electrocardiogram Report ---
Test Reason : Blood Pressure : / mmHG Vent. Rate : 069 BPM Atrial Rate : 069 BPM P-R Int : 186 ms QRS Dur : 088 ms QT Int : 446 ms P-R-T Axes : 055 034 056 degrees QTc Int : 477 ms Poor data quality, interpretation may be adversely affected Normal sinus rhythm Poor R wave progression, consider anterior LA vs. lead placement vs. LVH Abnormal ECG No previous ECGs available Confirmed by Naseem Kay ([id number]) on 06/23/2021 4:41:56 PM Referred By: Virginia Barillas Confirmed By:Naseem Kay
[2021-06-23 16:52] LABS: Appearance Urine Clear (Clear); Bilirubin Urine Negative (Negative); Blood Urine Negative (Negative); Color Urine Yellow; Glucose Urine UA Negative (Negative); Ketones Urine Negative (Negative); Leukocyte Esterase Urine Negative (Negative); Nitrite Urine Negative (Negative); Protein Urine Negative (Negative); Specific Gravity Urine 1.002 (1.000-1.030); Urobilinogen Urine Negative (Negative); pH Urine 6.5 (4.5-7.5)
--- NOTE | 2021-06-23 17:10 | CT Scan Report ---
UNENHANCED CT OF THE BRAIN; CT ANGIOGRAM OF THE BRAIN; CT ANGIOGRAM OF THE NECK CLINICAL HISTORY: Left-sided weakness and numbness. COMPARISON STUDY: MRI of the brain dated 07/01/2017. TECHNIQUE: Unenhanced axial CT scan of the brain is performed. Subsequently, following the IV adminis tration of 120 of [address] 320, CT angiogram of the head and neck was performed from the aortic arch t o the vertex. Images are reviewed in the axial, sagittal, and coronal planes. 3-D MIPS images are cre ated and assessed. IV contrast was administered without complication. All measurements were calculate d based on NASCET criteria. A dose lowering technique was utilized adhering to the principles of ALA RA. CT DOSE: 843.91 mGy.cm FINDINGS: Brain parenchyma: There is age-related involutional change noting mild to moderate patchy subcortical and periventricular microangiopathic disease. There is no hemorrhage, mass effect, or evidence of ac [place] territorial ischemia by CT criteria. There is no evidence of enhancing mass lesion on the angiogr am phase images. The ventricles, sulci, and cisterns are prominent secondary to involutional change. Lai-white matter differentiation is preserved. No extra-axial fluid collection is seen. Thoracic aorta: Visualized portions of the thoracic aorta are normal in caliber. The aortic arch demo nstrates 4-vessel variant anatomy. The left vertebral artery arises directly from the thoracic aorta. Right carotid arterial system: The right common carotid artery is widely patent, as are the right int ernal and external carotid arteries. Minimal plaque is seen in the carotid bulb. Left carotid arterial system: The left common carotid artery is widely patent, as are the left internal corrosion specialist al and external carotid arteries. Mild plaque is noted in the carotid bulb. Vertebral arteries: The vertebral arteries are widely patent bilaterally noting a right-sided dominan ce. 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 This is located at the level of C7. Subclavian arteries: Widely patent bilaterally. Intracranial vasculature: There is atherosclerotic calcification of the cavernous carotid arteries. T here is a large right posterior indicating artery. There is ectasia of the internal carotid arteries bilaterally. The internal carotid arteries are patent at the skull base, as are the anterior and midd le cerebral arteries bilaterally. The vertebrobasilar system and posterior cerebral arteries are wide ly patent. The right P1 segment is diminutive. The right vertebral artery is dominant. No definite an eurysm is identified. There is no high-grade stenosis or focal vessel cutoff identified. Jugular veins: Patent bilaterally. Dural sinuses: Patent. Lung apices: Emphysematous change is noted. Upper lobe lung parenchyma is otherwise clear as imaged. Soft tissues: The visualized pharyngeal soft tissues are normal in appearance noting angiographic pha se technique. The oropharyngeal airway appears widely patent. The salivary and thyroid glands are nor mal in appearance. No cervical lymphadenopathy is seen. Skeletal structures: The skeletal structures are osteopenic. The calvarium appears intact. The cervic al spine is maintained noting mild multilevel spondylosis. No lytic or blastic lesion is seen. Orbits: The bony orbits are intact. Orbital contents are normal as visualized. Sinuses and mastoids: The paranasal sinuses are clear. The mastoid air cells are well pneumatized. IMPRESSION: 1. There is no hemorrhage, mass effect, or evidence of acute territorial ischemia by CT criteria. 2. Unremarkable CT angiogram of the brain. 3. 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 4. Otherwise unremarkable CT angiogram of the neck. 5. Emphysema. ACT 112: Negative or not required by law. Electronically signed by: Irving Lopez M.D. 06/23/2021 5:09 PM
[2021-06-23] MEDS ORDERED: MULTI-VITAMIN INFUSION 10 ML, THIAMINE HCL 100 MG, FOLIC ACID 1 MG in SODIUM CHLORIDE 0... IV ONE (17:23)
--- NOTE | 2021-06-23 18:21 | History & Physical Report ---
Date of Service June 23, 2021 Assessment & Plan (1) Palsy: Plan: Wrist drop and impaired digit extension concerning for radial nerve palsy CT scan negative for any pathology We will check MRI of brain and cervical spine I have low index of suspicion for new CVA considering duration of symptoms and negative CT We will ask neurology to evaluate for further recommendations, may need to consider EMG/NCS (2) Alcoholism: Plan: Patient has ongoing chronic alcoholism Mild peripheral neuropathy and memory deficits are concerning for possible B12/folate deficiency Will start p.o. supplementation after checking levels We will need to monitor for alcohol withdrawal, will order prn ativan (3) Ataxia: Plan: Treatment as noted above Await neurology commentary PT/OT evaluation, suspect patient will require rehab on discharge considering her frequent falls (4) Hypertension: Plan: Blood pressure noted at 101/63 For now, will hold antihypertensives, can consider restarting medications depending on course History of Present Illness Chief Complaint: Left upper extremity palsy Primary Care Provider: Virginia Barillas PA-C This is a 70-year-old female with past my history of hypertension and chronic alcoholism presents today with a left upper extremity palsy. Patient may be a somewhat limited historian, she does have a family member who can fill in some details. Apparently patient has been having longstanding generalized weakness over the course of months. The family member notes that the patient has had some ataxia and has had issues with falling. Patient has multiple skin tears which should be dressed by nursing. Patient notes that she was having some mild numbness on the soles of her feet. However, more concerning was a left upper extremity weakness, mostly in her hand and wrist. This is also been longstanding for several months but became much worse in the last 48 hours. Patient denies any injury to this area or periods of extended compression. She has difficulty extending her fingers or her wrist. She does admit that this is much worse. Family member notes the patient was diagnosed with Lyme disease approximately 2 years ago. Patient had an extended antibiotic course but I feel that the patient's weakness never resolved and may have started around this area. They state that the patient used to be very active but now she spends a lot of time at home consuming alcohol. Outpatient is unclear how much alcohol she drinks, she will say 45 beers but the family member feels that it is much more than this. Patient's last drink was at 11:00 this morning. Allergies Allergy/AdvReac Type Severity Reaction Status Date / Time clindamycin Allergy Unknown RASH Verified 06/23/21 16:34 Penicillins Allergy Unknown RASH Verified 06/23/21 16:34 Home Medications Medication Instructions Recorded Confirmed Type amlodipine 10 mg tablet 10 mg PO QAM 06/11/21 06/23/21 History atenolol 50 mg tablet 50 mg PO QAM 06/11/21 06/23/21 History benazepril 20 mg tablet 20 mg PO QAM 06/11/21 06/23/21 History Past Med/Surg History Medical History (Updated 06/23/21 @ 18:30 by Kiko Mars DO) Hypertension Impaired memory per pt, feels she is getting very forgetful Poor historian Pt reports she is slow to wake up after anesthesia. After asking the questions, no surgeries were reported. So then asked her specifically "what all surgeries have you had?" She states, "I'm not really sure, I had something to check something, but I don't know what it was." Surgical History No history of previous surgery pt unsure Family History Other Unknown family medical history Social History Smoking Status: Current every day smoker Cigarettes Per Day: 2 ppd; Second Hand Exposure: Yes; Hx Alcohol Use: Yes Alcohol type: beer Hx Substance Use: No Preferred Language: Wallisian Communication Ability: Effective Dry Cleaning Manager Required: No Beliefs That Will Affect Care: None Current Living Situation: Alone Feels Safe at Home: Yes Assistive Devices: Glasses Review of Systems Constitutional: + weakness; no fever, no chills, no weight loss and no weight gain Eyes: as per Subjective / HPI Respiratory: no cough, no chest congestion, no dyspnea and no dyspnea on exertion Cardiovascular: no chest pain, no orthopnea, no palpitations, no lightheadedness and no edema Gastrointestinal: no abdominal pain, no nausea, no vomiting, no constipation and no diarrhea/loose stools Genitourinary: no dysuria, no difficulty urinating, no urinary frequency, no urinary hesitancy, no urinary urgency and no flank pain Musculoskeletal: no back pain, no neck pain, no joint pain, no stiffness and no myalgia Integumentary: no rash Neurologic: + gait abnormality, + unsteadiness, + falls, + localized weakness, + generalized weakness, + loss of sensation, + paresthesia and + memory loss; no tremor(s), no seizure-like activity, no syncope, no headache(s) and no abnormal speech Physical Exam Constitutional: cooperative; no acute distress Neck: trachea midline, no thyromegaly Respiratory: normal respiratory effort Auscultation: lungs clear to auscultation bilaterally; no crackles, no rales, no rhonchi and no wheezes Cardiovascular: Rate/Rhythm: regular rate and regular rhythm Heart Sounds: normal S1 and normal S2 Gastrointestinal (Abdomen): Inspection/Auscultation: abdomen normal to inspection Percussion/Palpation: abdomen soft; abdomen nontender, no guarding, abdomen not rigid and no hepatosplenomegaly Skin: no rashes, warm and dry Neurologic: CN's II-XI intact bilaterally Left upper extremity, 0 out of 5 wrist extension, 1 out of 5 custodial services manager strength. 1/5 elbow extension, 4 out of 5 elbow flex, normal shoulder strength bilaterally. Results & Data Results & Data ([facility]) Vital Signs (Past 12 Hours) Vital Signs Temp Pulse Pulse Resp BP BP Pulse Ox 06/23/21 17:06 75 16 101/63 06/23/21 16:52 89 14 95 06/23/21 15:58 98 06/23/21 15:40 75 16 105/68 97 06/23/21 15:35 80 16 105/68 96 06/23/21 14:35 36.3 C L 83 18 121/79 94 Laboratory Results Laboratory Results WBC 5.58 K/uL (4.8-10.8) 06/23/21 15:40 RBC 3.92 M/uL (4.2-5.4) L 06/23/21 15:40 Hgb 13.2 g/dL (12.0-16.0) 06/23/21 15:40 Hct 36.5 % (37-47) L 06/23/21 15:40 MCV 93.1 fL (80-100) 06/23/21 15:40 MCH 33.7 pg (25-34) 06/23/21 15:40 MCHC 36.2 g/dL (32-36) H 06/23/21 15:40 RDW Std Deviation 47.7 fL (36.4-46.3) H 06/23/21 15:40 RDW Coeff of Eriberto 14.0 % (11.5-14.5) 06/23/21 15:40 Plt Count 197 K/uL (130-400) 06/23/21 15:40 MPV 10.6 fL (7.4-10.4) H 06/23/21 15:40 Immature Gran % (Auto) 0.2 % 06/23/21 15:40 Neut % (Auto) 43.4 % 06/23/21 15:40 Lymph % (Auto) 36.0 % 06/23/21 15:40 Moca % (Auto) 17.2 % 06/23/21 15:40 Eos % (Auto) 0.5 % 06/23/21 15:40 Baso % (Auto) 2.7 % 06/23/21 15:40 Neut # (Auto) 2.42 K/uL (1.4-6.5) 06/23/21 15:40 Lymph # (Auto) 2.01 K/uL (1.2-3.4) 06/23/21 15:40 Moca # (Auto) 0.96 K/uL (0.11-0.59) H 06/23/21 15:40 Eos # (Auto) 0.03 K/uL (0-0.5) 06/23/21 15:40 Baso # (Auto) 0.15 K/uL (0-0.2) 06/23/21 15:40 Immature Gran # (Auto) 0.01 K/uL (0.00-0.02) 06/23/21 15:40 PT 10.9 Seconds (9.0-12.0) 06/23/21 15:40 INR 1.1 (0.9-1.1) 06/23/21 15:40 APTT 27.6 Seconds (21.0-31.0) 06/23/21 15:40 PTT Ratio 1.0 06/23/21 15:40 Sodium 126 mmol/L (136-145) L 06/23/21 15:40 Potassium 3.6 mmol/L (3.5-5.1) 06/23/21 15:40 Chloride 94 mmol/L (98-107) L 06/23/21 15:40 Carbon Dioxide 26 mmol/L (21-32) 06/23/21 15:40 Anion Gap 6.0 (3-11) 06/23/21 15:40 BUN 2 mg/dl (7-18) L 06/23/21 15:40 Creatinine 0.39 mg/dl (0.6-1.2) L 06/23/21 15:40 Est Cr Clr Drug Dosing 106.8 ml/min 06/23/21 15:40 Est GFR ( Amer) 125.1 ml/min 06/23/21 15:40 Est GFR (Non-Af Amer) 107.9 ml/min 06/23/21 15:40 BUN/Creatinine Ratio 5.6 (10-20) L 06/23/21 15:40 Glucose 78 mg/dl (70-99) 06/23/21 15:40 Lactate 2.4 mmol/L (0.4-2.0) H* 06/23/21 16:30 Calcium 8.5 mg/dl (8.5-10.1) 06/23/21 15:40 Magnesium 2.4 mg/dl (1.8-2.4) 06/23/21 15:40 Total Bilirubin 0.8 mg/dl (0.2-1) 06/23/21 15:40 AST 138 U/L (15-37) H 06/23/21 15:40 ALT 89 U/L (12-78) H 06/23/21 15:40 Alkaline Phosphatase 140 U/L (45-117) H 06/23/21 15:40 Total Creatine Kinase 418 U/L (26-192) H 06/23/21 15:40 Troponin I < 0.015 ng/ml (0-0.045) 06/23/21 15:40 Total Protein 7.3 gm/dl (6.4-8.2) 06/23/21 15:40 Albumin 3.1 gm/dl (3.4-5.0) L 06/23/21 15:40 Globulin 4.2 gm/dl (2.5-4.0) H 06/23/21 15:40 Albumin/Globulin Ratio 0.7 (0.9-2) L 06/23/21 15:40 TSH 6.420 uIu/ml (0.300-4.500) H 06/23/21 15:40 Free T4 0.80 ng/dl (0.8-1.6) 06/23/21 15:40 Urine Color Yellow 06/23/21 16:40 Urine Appearance Clear (Clear) 06/23/21 16:40 Urine pH 6.5 (4.5-7.5) 06/23/21 16:40 Ur Specific Dudley 1.002 (1.000-1.030) 06/23/21 16:40 Urine Protein Negative (Negative) 06/23/21 16:40 Urine Glucose (UA) Negative (Negative) 06/23/21 16:40 Urine Ketones Negative (Negative) 06/23/21 16:40 Urine Blood Negative (Negative) 06/23/21 16:40 Urine Nitrite Negative (Negative) 06/23/21 16:40 Urine Bilirubin Negative (Negative) 06/23/21 16:40 Urine Urobilinogen Negative (Negative) 06/23/21 16:40 Ur Leukocyte Esterase Negative (Negative) 06/23/21 16:40 Ethyl Alcohol mg/dL 87.0 mg/dl (0-3) H 06/23/21 16:30 COVID-19 Eval Order Covid19 at [facility] 06/23/21 17:50 Impressions Chest X-Ray 06/23/21 15:58 XR chest 1V portable HISTORY: weakness COMPARISON: Chest 07/16/2006. FINDINGS: No pneumothorax. No pleural effusions. Mild interstitial thickening at the lung bases. This is likely chronic. There is a linear scarlike density within the right lower lobe. The heart is normal in size. The lungs are hyperexpanded with apical predominant emphysematous changes. No new focal lung consolidations to suggest pneumonia. No evidence for pulmonary edema. IMPRESSION: No significant change compared to the prior study. No acute process. ACT 112: Negative or not required by law. Electronically signed by: Romeo Jha M.D. 06/23/2021 4:[address] 06/23/21 15:[address] OF THE BRAIN; CT ANGIOGRAM OF THE BRAIN; CT ANGIOGRAM OF THE NECK CLINICAL HISTORY: Left-sided weakness and numbness. COMPARISON STUDY: MRI of the brain dated 07/01/2017. TECHNIQUE: Unenhanced axial CT scan of the brain is performed. Subsequently, following the IV administration of 120 of Optiray 320, CT angiogram of the head and neck was performed from the aortic arch to the vertex. Images are reviewed in the axial, sagittal, and coronal planes. 3-D MIPS images are created and assessed. IV contrast was administered without complication. All measurements were calculated based on NASCET criteria. A dose lowering technique was utilized adhering to the principles of ALARA. CT DOSE: 843.91 mGy.cm FINDINGS: Brain parenchyma: There is age-related involutional change noting mild to moderate patchy subcortical and periventricular microangiopathic disease. There is no hemorrhage, mass effect, or evidence of acute territorial ischemia by CT criteria. There is no evidence of enhancing mass lesion on the angiogram phase images. The ventricles, sulci, and cisterns are prominent secondary to involutional change. Lai-white matter differentiation is preserved. No extra- axial fluid collection is seen. Thoracic aorta: Visualized portions of the thoracic aorta are normal in caliber. The aortic arch demonstrates 4-vessel variant anatomy. The left vertebral artery arises directly from the thoracic aorta. Right carotid arterial system: The right common carotid artery is widely patent, as are the right internal and external carotid arteries. Minimal plaque is seen in the carotid bulb. Left carotid arterial system: The left common carotid artery is widely patent, as are the left internal and external carotid arteries. Mild plaque is noted in the carotid bulb. Vertebral arteries: The vertebral arteries are widely patent bilaterally noting a right-sided dominance. 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 This is located at the level of C7. Subclavian arteries: Widely patent bilaterally. Intracranial vasculature: There is atherosclerotic calcification of the cavernous carotid arteries. There is a large right posterior indicating artery. There is ectasia of the internal carotid arteries bilaterally. The internal carotid arteries are patent at the skull base, as are the anterior and middle cerebral arteries bilaterally. The vertebrobasilar system and posterior cerebral arteries are widely patent. The right P1 segment is diminutive. The right vertebral artery is dominant. No definite aneurysm is identified. There is no high-grade stenosis or focal vessel cutoff identified. Jugular veins: Patent bilaterally. Dural sinuses: Patent. Lung apices: Emphysematous change is noted. Upper lobe lung parenchyma is otherwise clear as imaged. Soft tissues: The visualized pharyngeal soft tissues are normal in appearance noting angiographic phase technique. The oropharyngeal airway appears widely patent. The salivary and thyroid glands are normal in appearance. No cervical lymphadenopathy is seen. Skeletal structures: The skeletal structures are osteopenic. The calvarium appears intact. The cervical spine is maintained noting mild multilevel spondylosis. No lytic or blastic lesion is seen. Orbits: The bony orbits are intact. Orbital contents are normal as visualized. Sinuses and mastoids: The paranasal sinuses are clear. The mastoid air cells are well pneumatized. IMPRESSION: 1. There is no hemorrhage, mass effect, or evidence of acute territorial ischemia by CT criteria. 2. Unremarkable CT angiogram of the brain. 3. 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 4. Otherwise unremarkable CT angiogram of the neck. 5. Emphysema. ACT 112: Negative or not required by law. Electronically signed by: Irving Lopez M.D. 06/23/2021 5:09 PM Head CTA 06/23/21 15:[address] OF THE BRAIN; CT ANGIOGRAM OF THE BRAIN; CT ANGIOGRAM OF THE NECK CLINICAL HISTORY: Left-sided weakness and numbness. COMPARISON STUDY: MRI of the brain dated 07/01/2017. TECHNIQUE: Unenhanced axial CT scan of the brain is performed. Subsequently, following the IV administration of 120 of Optiray 320, CT angiogram of the head and neck was performed from the aortic arch to the vertex. Images are reviewed in the axial, sagittal, and coronal planes. 3-D MIPS images are created and assessed. IV contrast was administered without complication. All measurements were calculated based on NASCET criteria. A dose lowering technique was utilized adhering to the principles of ALARA. CT DOSE: 843.91 mGy.cm FINDINGS: Brain parenchyma: There is age-related involutional change noting mild to moderate patchy subcortical and periventricular microangiopathic disease. There is no hemorrhage, mass effect, or evidence of acute territorial ischemia by CT criteria. There is no evidence of enhancing mass lesion on the angiogram phase images. The ventricles, sulci, and cisterns are prominent secondary to involutional change. Lai-white matter differentiation is preserved. No extra- axial fluid collection is seen. Thoracic aorta: Visualized portions of the thoracic aorta are normal in caliber. The aortic arch demonstrates 4-vessel variant anatomy. The left vertebral artery arises directly from the thoracic aorta. Right carotid arterial system: The right common carotid artery is widely patent, as are the right internal and external carotid arteries. Minimal plaque is seen in the carotid bulb. Left carotid arterial system: The left common carotid artery is widely patent, as are the left internal and external carotid arteries. Mild plaque is noted in the carotid bulb. Vertebral arteries: The vertebral arteries are widely patent bilaterally noting a right-sided dominance. 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 This is located at the level of C7. Subclavian arteries: Widely patent bilaterally. Intracranial vasculature: There is atherosclerotic calcification of the cavernous carotid arteries. There is a large right posterior indicating artery. There is ectasia of the internal carotid arteries bilaterally. The internal carotid arteries are patent at the skull base, as are the anterior and middle cerebral arteries bilaterally. The vertebrobasilar system and posterior cerebral arteries are widely patent. The right P1 segment is diminutive. The right vertebral artery is dominant. No definite aneurysm is identified. There is no high-grade stenosis or focal vessel cutoff identified. Jugular veins: Patent bilaterally. Dural sinuses: Patent. Lung apices: Emphysematous change is noted. Upper lobe lung parenchyma is otherwise clear as imaged. Soft tissues: The visualized pharyngeal soft tissues are normal in appearance noting angiographic phase technique. The oropharyngeal airway appears widely patent. The salivary and thyroid glands are normal in appearance. No cervical lymphadenopathy is seen. Skeletal structures: The skeletal structures are osteopenic. The calvarium appears intact. The cervical spine is maintained noting mild multilevel spondylosis. No lytic or blastic lesion is seen. Orbits: The bony orbits are intact. Orbital contents are normal as visualized. Sinuses and mastoids: The paranasal sinuses are clear. The mastoid air cells are well pneumatized. IMPRESSION: 1. There is no hemorrhage, mass effect, or evidence of acute territorial ischemia by CT criteria. 2. Unremarkable CT angiogram of the brain. 3. 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 4. Otherwise unremarkable CT angiogram of the neck. 5. Emphysema. ACT 112: Negative or not required by law. Electronically signed by: Irving Lopez M.D. 06/23/2021 5:09 PM Neck CTA 06/23/21 15:[address] OF THE BRAIN; CT ANGIOGRAM OF THE BRAIN; CT ANGIOGRAM OF THE NECK CLINICAL HISTORY: Left-sided weakness and numbness. COMPARISON STUDY: MRI of the brain dated 07/01/2017. TECHNIQUE: Unenhanced axial CT scan of the brain is performed. Subsequently, following the IV administration of 120 of Optiray 320, CT angiogram of the head and neck was performed from the aortic arch to the vertex. Images are reviewed in the axial, sagittal, and coronal planes. 3-D MIPS images are created and assessed. IV contrast was administered without complication. All measurements were calculated based on NASCET criteria. A dose lowering technique was utilized adhering to the principles of ALARA. CT DOSE: 843.91 mGy.cm FINDINGS: Brain parenchyma: There is age-related involutional change noting mild to moderate patchy subcortical and periventricular microangiopathic disease. There is no hemorrhage, mass effect, or evidence of acute territorial ischemia by CT criteria. There is no evidence of enhancing mass lesion on the angiogram phase images. The ventricles, sulci, and cisterns are prominent secondary to involutional change. Lai-white matter differentiation is preserved. No extra- axial fluid collection is seen. Thoracic aorta: Visualized portions of the thoracic aorta are normal in caliber. The aortic arch demonstrates 4-vessel variant anatomy. The left vertebral artery arises directly from the thoracic aorta. Right carotid arterial system: The right common carotid artery is widely patent, as are the right internal and external carotid arteries. Minimal plaque is seen in the carotid bulb. Left carotid arterial system: The left common carotid artery is widely patent, as are the left internal and external carotid arteries. Mild plaque is noted in the carotid bulb. Vertebral arteries: The vertebral arteries are widely patent bilaterally noting a right-sided dominance. 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 This is located at the level of C7. Subclavian arteries: Widely patent bilaterally. Intracranial vasculature: There is atherosclerotic calcification of the cavernous carotid arteries. There is a large right posterior indicating artery. There is ectasia of the internal carotid arteries bilaterally. The internal carotid arteries are patent at the skull base, as are the anterior and middle cerebral arteries bilaterally. The vertebrobasilar system and posterior cerebral arteries are widely patent. The right P1 segment is diminutive. The right vertebral artery is dominant. No definite aneurysm is identified. There is no high-grade stenosis or focal vessel cutoff identified. Jugular veins: Patent bilaterally. Dural sinuses: Patent. Lung apices: Emphysematous change is noted. Upper lobe lung parenchyma is otherwise clear as imaged. Soft tissues: The visualized pharyngeal soft tissues are normal in appearance noting angiographic phase technique. The oropharyngeal airway appears widely patent. The salivary and thyroid glands are normal in appearance. No cervical lymphadenopathy is seen. Skeletal structures: The skeletal structures are osteopenic. The calvarium appears intact. The cervical spine is maintained noting mild multilevel spondylosis. No lytic or blastic lesion is seen. Orbits: The bony orbits are intact. Orbital contents are normal as visualized. Sinuses and mastoids: The paranasal sinuses are clear. The mastoid air cells are well pneumatized. IMPRESSION: 1. There is no hemorrhage, mass effect, or evidence of acute territorial ische roni by CT criteria. 2. Unremarkable CT angiogram of the brain. 3. 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 4. Otherwise unremarkable CT angiogram of the neck. 5. Emphysema. ACT 112: Negative or not required by law. Electronically signed by: Irving Lopez M.D. 06/23/2021 5:09 PM Elbow X-Ray 06/23/21 16:04 XR elbow LT min 3V routine, XR forearm LT 2V, XR wrist LT w scaphoid CLINICAL HISTORY: Fall. Left arm weakness and pain. Left elbow, forearm and wrist pain. COMPARISON STUDY: None. FINDINGS: Mild soft tissue swelling within the proximal posterior forearm/elbow. No elbow effusion. There is an old nonunited fracture at the ulnar styloid. No acute fracture or dislocation within the left elbow, left forearm, or left wrist. The bones are osteopenic. Mild dorsal soft tissue swelling within the wrist. The scaphoid appears intact. IMPRESSION: No acute fractures within the left forearm, left wrist, or left elbow. ACT 112: Negative or not required by law. Electronically signed by: Romeo Jha M.D. 06/23/2021 4:31 PM Forearm X-Ray 06/23/21 16:04 XR elbow LT min 3V routine, XR forearm LT 2V, XR wrist LT w scaphoid CLINICAL HISTORY: Fall. Left arm weakness and pain. Left elbow, forearm and wrist pain. COMPARISON STUDY: None. FINDINGS: Mild soft tissue swelling within the proximal posterior forearm/elbow. No elbow effusion. There is an old nonunited fracture at the ulnar styloid. No acute fracture or dislocation within the left elbow, left forearm, or left wrist. The bones are osteopenic. Mild dorsal soft tissue swelling within the wrist. The scaphoid appears intact. IMPRESSION: No acute fractures within the left forearm, left wrist, or left elbow. ACT 112: Negative or not required by law. Electronically signed by: Romeo Jha M.D. 06/23/2021 4:31 PM Wrist X-Ray 06/23/21 16:04 XR elbow LT min 3V routine, XR forearm LT 2V, XR wrist LT w scaphoid CLINICAL HISTORY: Fall. Left arm weakness and pain. Left elbow, forearm and wrist pain. COMPARISON STUDY: None. FINDINGS: Mild soft tissue swelling within the proximal posterior forearm/elbow. No elbow effusion. There is an old nonunited fracture at the ulnar styloid. No acute fracture or dislocation within the left elbow, left forearm, or left wrist. The bones are osteopenic. Mild dorsal soft tissue swelling within the wrist. The scaphoid appears intact. IMPRESSION: No acute fractures within the left forearm, left wrist, or left elbow. ACT 112: Negative or not required by law. Electronically signed by: Romeo Jha M.D. 06/23/2021 4:31 PM PG Care Time/CCT Total # of Minutes Spent Total Time Spent with Patient: Total time spent is greater than 50% in coordination of care (as documented) at patient's floor/unit and/or counseling patient: Coding Level of Care Code 22936 Initial Inpt Care Lvl 3 Diagnoses Alcoholism F10.20 Ataxia R27.0 Palsy G83.9 Hypertension I10
--- NOTE | 2021-06-23 20:52 | Magnetic Resonance Report ---
MRI OF THE BRAIN WITHOUT IV CONTRAST CLINICAL HISTORY: Left-sided weakness and numbness. COMPARISON STUDY: CT of the brain dated 06/23/2021. TECHNIQUE: MRI of the brain was performed utilizing various T1 and T2-weighted sequences in the axial , sagittal, and coronal planes. IV contrast was not administered for this examination. FINDINGS: Brain parenchyma: There is age-related involutional change noting mild subcortical and periventricula r microangiopathic disease. There is no hemorrhage or mass effect. There is no restricted diffusion t o suggest acute ischemia. Lai-white matter differentiation is preserved. No extra-axial fluid collec tion is seen. The cerebellar tonsils are normal in configuration. Ventricles, sulci, and cisterns: Prominent secondary to involutional change. Pituitary and sella: Unremarkable. Intracranial vasculature: Normal flow voids are maintained at the skull base. Orbits: The bony orbits are grossly intact. Orbital contents are normal in appearance. Sinuses and mastoids: Clear. Calvarium: Unremarkable. Cervical cord: Partially visualized cervical spinal cord is normal in morphology and signal intensity . IMPRESSION: No acute intracranial abnormality. ACT 112: Negative or not required by law. Electronically signed by: Irving Lopez M.D. 06/23/2021 8:50 PM
[2021-06-23] MEDS ORDERED: LORazepam 1 MG TAB PO PRN ×2 (21:41→22:59)
[2021-06-23] MEDS ORDERED: ACETAMINOPHEN 325 MG TAB PO PRN (21:41)
[2021-06-23] MEDS ORDERED: ALUMINUM/MAGNESIUM SUSP 30 ML UDC PO PRN (21:41)
[2021-06-23] MEDS ORDERED: MAGNESIUM HYDROXIDE SUSP 30 ML UDC PO PRN (21:41)
[2021-06-23 23:28] LABS: Folate (Folic Acid) > 20.00 ng/ml (>5.38); Vitamin B12 945 pg/ml (193-986)
[2021-06-24 07:14] LABS: Albumin Level 2.8 gm/dl (3.4-5.0); BUN Creatinine Ratio 11.8 (10-20); Calcium 8.3 mg/dl (8.5-10.1); Creatinine Clr Calc Pharmacy 130.2 ml/min; Est GFR (African American) 133.5 ml/min; Est GFR (Non-African American) 115.2 ml/min; Magnesium 1.9 mg/dl (1.8-2.4); Potassium 3.6 mmol/L (3.5-5.1)
[2021-06-24 07:23] LABS: Albumin Globulin Ratio 0.7 (0.9-2); Bilirubin,Total 1.2 mg/dl (0.2-1); Globulin 3.9 gm/dl (2.5-4.0); Total Protein 6.7 gm/dl (6.4-8.2)
[2021-06-24] MEDS: CYANOCOBALAMIN 500 MCG TABLET (VITAMIN B-12) PO SCH (08:04)
[2021-06-24] MEDS: THIAMINE HCL 100 MG in SYRINGE 9 ML IV SCH (08:04)
[2021-06-24] MEDS: FOLIC ACID 1 MG TAB PO SCH (08:04)
--- NOTE | 2021-06-24 08:52 | Neurology Consultation ---
Date of Consultation June 24, 2021 Assessment & Plan (1) Left radial nerve palsy: (2) Ataxia: (3) Peripheral neuropathy: Left upper extremity radial nerve palsy, probably proximal to the elbow, presenting with profound left wrist drop as well as weakness of the triceps muscle. Has associated sensory loss within the anatomic snuffbox/medial dorsal aspect of the left hand. Suspected "Wednesday night palsy" in this patient with probable chronic alcoholism. Patient also has a significant ataxia that appears to be related to a mix of both cerebellar dysfunction and peripheral neuropathy. Does have a moderate intention tremor with [id number] as well, much more obvious for the right hand. Does not have obvious nystagmus or ophthalmoplegia. Does not appear to have a Wernicke-Korsakoff syndrome at this time. Prognosis for radial nerve palsy is typically favorable with most individuals experiencing significant functional improvement within 3 to 4 months. Exact chronicity of this nerve lesion in this patient is not entirely clear, however. Would recommend completion of an outpatient EMG in 3 to 4 weeks. Would also include EMG of the lower limbs to assess for suspected peripheral neuropathy with element of sensory ataxia. Consider supplementation with thiamine, would check an up-to-date thiamine level. Monitor patient for alcohol withdrawal/delirium tremens. Recently completed brain MRI negative for acute or subacute stroke. C-spine MRI does reveal an element of degenerative disc disease and multilevel spondylosis. However, does not have significant central canal stenosis. Please follow-up with radiology report when available. Consultations with PT/OT. Patient will need counseling regarding alcohol cessation. Patient also reportedly smokes 2 packs of cigarettes per day. She will need additional counseling regarding this issue as well. History of Present Illness Reason for Consultation: nerve palsy Requesting Physician: Kiko Mars DO Attending Physician: Luis F Fragoso DO History of Present Illness The patient is a 70-year-old female with a chief complaint of left wrist drop which has been present for the past week or so, exact onset uncertain according to the patient. She also complains of poor balance which has been a chronic issue with occasional stumbles and falls. She does endorse some numbness affecting the medial dorsal aspect of the left hand. She is also aware of some weakness involving extension of the left elbow. No associated shoulder girdle weakness or significant neck pain. Patient denies any associated weakness or sensory loss to the left lower limb or face. Denies experiencing any associated difficulty with vision. No headache or vertigo. Patient does endorse regular alcohol consumption, reporting 4 beers per day although family members have expressed concern regarding a much larger consumption than this. Patient smokes about 2 packs of cigarettes per day. Patient is prescribed several antihypertensives as an outpatient. No known history of stroke. Denies a history of significant neck or low back problems. CT angiography of the head and neck including CT of the head negative for hemorrhage or acute process. Unremarkable angiogram of the brain. 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 Brain MRI negative for acute or subacute stroke. There is evidence of mild generalized atrophy and mild to moderate chronic microvascular ischemic disease. I reviewed the images as well as the radiologist's interpretation of this test. A cervical spine MRI has been completed as well. There is evidence of mild to moderate multilevel degenerative disc disease with associated spondylosis. There is perhaps mild spinal stenosis at the C4-5 level with mild effacement of the thecal sac at that level but without associated spinal cord signal abnormality or obvious myelopathy per my review of the images. Radiologist interpretation pending at this time. Allergies Allergy/AdvReac Type Severity Reaction Status Date / Time clindamycin Allergy Unknown RASH Verified 06/23/21 16:34 Penicillins Allergy Unknown RASH Verified 06/23/21 16:34 Home Medications Medication Instructions Recorded Confirmed Type amlodipine 10 mg tablet 10 mg PO QAM 06/11/21 06/23/21 History atenolol 50 mg tablet 50 mg PO QAM 06/11/21 06/23/21 History benazepril 20 mg tablet 20 mg PO QAM 06/11/21 06/23/21 History Patient History Medical History Hypertension Impaired memory per pt, feels she is getting very forgetful Poor historian Pt reports she is slow to wake up after anesthesia. After asking the questions, no surgeries were reported. So then asked her specifically "what all surgeries have you had?" She states, "I'm not really sure, I had something to check something, but I don't know what it was." Surgical History No history of previous surgery pt unsure Family History Other Unknown family medical history Social History Smoking Status: Current every day smoker Cigarettes Per Day: 2 packs; Second Hand Exposure: Yes; Hx Alcohol Use: Yes Alcohol type: beer Hx Substance Use: No Preferred Language: Armenian Communication Ability: Effective Curb Attendant Required: No Beliefs That Will Affect Care: None Current Living Situation: Alone Feels Safe at Home: Yes Safety Concerns: Feels Safe At This Time Assistive Devices: Glasses Review of Systems Constitutional: no fever and no chills Eyes: no blind spots and no diplopia Ear, Nose, Mouth, Throat: no ear pain and no hearing loss Respiratory: no cough and no dyspnea Cardiovascular: no chest pain and no palpitations Gastrointestinal: no constipation and no diarrhea/loose stools Genitourinary: no urinary urgency and no urinary incontinence Musculoskeletal: as per Subjective / HPI and + muscle weakness; no radicular pain Integumentary: no rash and no lesions Neurologic: as per Subjective / HPI Psychiatric: no behavioral changes, no depression, no abnormal sleep pattern and no anxiety Hematologic / Lymphatic: + easy bruising Exam (Neuro) Constitutional: well developed and well nourished; no acute distress Eyes: normal visual [place] by confrontation, PERRL, normal accommodation and EOM intact bilaterally; no fundoscopic abnormality, no nystagmus and no papilledema Cardiovascular: Vessels: normal carotid upstroke; no carotid bruit Neurologic: Oriented to:: Person, Place and Time Memory: Short Term Intact and Remote Intact Attention: Span Intact and Concentration Intact Language: Naming Objects and Repeating Phrases Speech Fluency: negative Dysarthria Speech Aphasia: negative Aphasia Fund of Knowledge: Current Events, Past History and Vocabulary Cranial Nerves: Normal II (Visual [place] full to confrontation, visual acuity normal), III, IV, (Pupils equal round reactive to light and accommodation, eye movements normal), V (Facial sensation intact), VII (There is no facial droop or weakness), VIII (Hearing intact), IX, X (Palate elevates to midline), XI (Shoulder shrug intact) and XII (Tongue protrudes to midline) Motor Strength: Normal Lower Extremities; negative Normal Upper Extremities (There is a profound left wrist drop, strength 0 out of 5. There is moderate weakness of the intrinsic hand muscles as well. Learning Center Coordinator strength intact. There is significant weakness of the left triceps muscle group. Bicep strength intact. Proximal shoulder girdle strength intact.) or Pronator Drift Motor Tone: Normal Lower Extremities; negative Normal Upper Extremities (Flaccid weakness of left wrist extensors noted.) Muscle Bulk/Involuntary Movements: No Involuntary Movements; negative Muscle Atrophy Sensation: negative Light Touch Intact, Pain/Temperature Intact, Vibration Intact or Proprioception Intact Coordination: Limited Balance and Finger-Nose Abnormal; negative Normal, Dysdiadochokinesia or Heel-Davila Abnormal Deep Tendon Reflexes: Rt Triceps: 2+, Lt Triceps: 2+, Rt Biceps: 2+, Lt Biceps: 2+, Rt Brachioradialis: 2+, Lt Brachioradialis: 2+, Rt Patellar: 2+, Lt Patellar: 2+, Rt Ankle: 1+ and Lt Ankle: 1+ Special Tests: negative Babinski Present Gait: Ataxic Details: Relative sensory loss to light touch along the medial dorsal aspect of the left hand. Sensory loss does not extend proximally into the forearm. Does not have a C7-C8 dermatomal sensory loss. Results & Data ([facility]) Vital Signs (Past 12 Hours) Vital Signs Temp Pulse Pulse Pulse Resp BP BP 06/24/21 07:46 36.8 C 74 84 18 103/62 06/24/21 03:22 37.0 C 72 18 102/63 06/23/21 22:55 68 06/23/21 22:26 36.7 C 79 16 119/70 Pulse Ox 06/24/21 07:46 92 06/24/21 03:22 90 06/23/21 22:55 06/23/21 22:26 91 Laboratory Results WBC 5.58, hemoglobin 13.2, hematocrit 36.5, platelet count 197, sodium 133, potassium 3.6, BUN 4, creatinine 0.32, glucose 85, AST 98, ALT 72, total CK 418, troponin less than 0.015, triglycerides 69, cholesterol 173, LDL 63, VLDL 14, HDL 96, vitamin B12 945, folate greater than 20, TSH 6.420, free T4 0.80, ethyl alcohol level 87.[address] of the head, CT angiography of the head and neck, brain MRI, and MRI of the cervical spine are as described in the history of present illness. I did review the images as well as the radiologist's interpretation of these tests. Electrocardiogram reveals a normal sinus rhythm, 69 bpm. Coding Level of Care Code 95915 Initial In Care Lvl 3 Diagnoses Left radial nerve palsy G56.32 Ataxia R27.0 Peripheral neuropathy G62.9
--- NOTE | 2021-06-24 09:39 | Magnetic Resonance Report ---
CERVICAL SPINE MRI HISTORY: Left upper extremity weakness. TECHNIQUE: Multiplanar multisequence MRI of the cervical spine was performed without the use of contr ast. COMPARISON STUDY: None. FINDINGS: No fracture or subluxation within the cervical spine. Mild disc space narrowing at C4-C5, C 5-C6, and C6-C7. The cervical spinal cord demonstrates a normal signal intensity. No osseous lesions identified within the cervical spine. Prevertebral soft tissues and the C1-C2 interval are intact. Mi ld facet degenerative changes throughout the cervical spine. C2-C3: No significant central canal or neural foraminal narrowing. C3-C4: No significant central canal narrowing. Mild bilateral neural foraminal narrowing due to the u ncovertebral hypertrophy. C4-C5: Small broad-based posterior disc osteophyte complex asymmetric to the left. This abuts and sli ghtly deforms the left anterior cord consistent with mild central canal narrowing. There is also mode rate to severe left-sided neural foraminal narrowing due to the uncovertebral hypertrophy. C5-C6: Small broad-based posterior disc osteophyte complex without significant central canal or left- sided neural foraminal narrowing. There is moderate right-sided neural foraminal narrowing due to the uncovertebral hypertrophy. C6-C7: Small broad-based posterior disc bulge without significant central canal narrowing. There is m ild right and severe left neural foraminal narrowing due to the uncovertebral hypertrophy. C7-T1: No significant central canal or neural foraminal narrowing. IMPRESSION: 1. No fracture or dislocation within the cervical spine. 2. Multilevel mild cervical spondylosis as described above most pronounced at the C4-C5 level which d emonstrates mild central canal narrowing. 3. Multilevel bilateral neural foraminal narrowing primarily due to the uncovertebral hypertrophy. ACT 112: Negative or not required by law. Electronically signed by: Romeo Jha M.D. 06/24/2021 9:38 AM
--- NOTE | 2021-06-24 20:10 | Hospitalist Progress Note ---
Date of Service June 24, 2021 Assessment & Plan (1) Left radial nerve palsy: Plan: - Wrist drop with impaired digit extension; tricep weakness - CT/MRI negative for pathology or CVA; Cervical spine with some DDD but no significant central canal stenosis - OT - Passive ROM exercises and active for musles she can move - Neurology evaluated -- Prognosis is favorable but 3-4 month improvement -- Outpatient EMG in 3-4 weeks (2) Ataxia: Plan: - Ataxia may be related to mix of cerebellar dysfunction and peripheral neuropathy - Recommend EMG as outpatient - PT/OT; utilize ambulatory assistive devices - Folate WNL; B12 in normal limits but may benefit from further supplemenation to build stores; does take a B1 vitamin at home -- peripheral neuropathy is likely in setting of chronic alcoholism (3) Alcoholism: Plan: - Chronic alcoholism - patient reporting 4 beers/day however discussed with daughter and she reports consumption is higher possibly double that - No active signs of withdrawal at this time - Ativan PRN - Continue B12/folate/thiamine supplementation (4) Hypertension: Plan: - STABLE - Hold blood pressure medications at this time -- Discussed with patient and daughter - pt is on 3 medications and possibly lower BPs contributing to unsteadiness? -- Discussed with daughter about routine BP monitoring to see if this could be contributing (5) Aneurysm of right vertebral artery: Plan: - Incidental finding of 5 mm saccular aneurysm in the R vertebral artery - Will need neurovascular F/U in next 3-4 weeks for monitoring (6) Positive blood culture: Plan: - Initially just one culture with gram positive cocci in clusters but now second one is positive - Except for weakness - clinical picture does not seem bacteremic as afebrile, no leukocytosis, no fever, hemodynamically stable - Will cover with Rocephin overnight and await culture identification - new cultures obtained prior to Abx start in case of contamination Plan: Disposition: - PT/OT - consideration for inpatient/outpatient rehab - Await blood culture Admission and Anticipated Discharge Date Admission Date: June 23, 2021 Subjective Patient verbalizes feeling overall well. Still with L wrist drop and some difficulty ambulating but does better with the walker. She is forgetful. No signs of alcohol withdrawal at this time. Discussed with family at bedside. Initially only one blood culture was positive and now second is positive - gram pos cocci in clusters. Clinically hemodynamically stable and from home making MRSA less likely. Maybe contributing to weakness however afebrile, no leukocytosis, no hypotension but will empirically cover with Rocephin overnight until cx further identifies. Repeat Cx already obtained if contamination Review of Systems Constitutional: + weakness (lower extremities; L wrist); no fever, no chills and no fatigue Eyes: no worsening vision Ear, Nose, Mouth, Throat: no nasal congestion and no sore throat Respiratory: no cough and no chest congestion Cardiovascular: no chest pain, no dyspnea, no orthopnea and no lightheadedness Gastrointestinal: no abdominal pain, no nausea and no vomiting Genitourinary: no dysuria Musculoskeletal: + muscle weakness (bilateral lower extremities; L wrist with drop); no joint pain Integumentary: multiple skin tears Neurologic: + unsteadiness and + numbness (bilateral bottoms of feet) Psychiatric: + forgetful Physical Exam Constitutional: no acute distress and not ill appearing Eyes: + anicteric sclerae ENMT: external ear and nose normal, oropharynx normal Neck: trachea midline, no thyromegaly Respiratory: normal respiratory effort, lungs clear to auscultation Cardiovascular: RRR, no murmur, no edema Gastrointestinal (Abdomen): normal bowel sounds, soft, nontender, no hepatosplenomegaly Skin: + multiple bruising and skin tears covered with dressing on L arm and R leg Psychiatric: A+Ox3, euthymic affect +forgetful Results & Data Results & Data ([facility]) Vital Signs (Past 12 Hours) Vital Signs Temp Pulse Pulse Resp BP Pulse Ox 06/24/21 19:22 36.8 C 76 18 117/71 91 06/24/21 16:08 94 06/24/21 16:00 36.7 C 63 18 105/54 L 94 06/24/21 15:23 82 06/24/21 11:02 36.7 C 73 18 111/73 92 06/24/21 07:46 36.8 C 74 84 18 103/62 92 PG Care Time/CCT Total # of Minutes Spent Total Time Spent with Patient: Total time spent is greater than 50% in coordination of care (as documented) at patient's floor/unit and/or counseling patient: Coding Level of Care Code 22287 Subseq Hosp Care Lvl 3 Diagnoses Alcoholism F10.20 Ataxia R27.0 Hypertension I10 Left radial nerve palsy G56.32 Aneurysm of right vertebral artery I72.6 Positive blood culture R78.81
[2021-06-24] MEDS ORDERED: cefTRIAXone SODIUM 1,000 MG in DEXTROSE 5% 50 ML IV ONE (20:15)
[2021-06-25 07:09] LABS: Hematocrit (blood only) 35.9 % (37-47); Hemoglobin 12.6 g/dL (12.0-16.0); Mean Corpuscular Hemoglobin 33.3 pg (25-34); Mean Corpuscular Hgb Conc 35.1 g/dL (32-36); Platelet Count 191 K/uL (130-400); RDW Coefficient of Variation 14.3 % (11.5-14.5); RDW Standard Deviation 49.5 fL (36.4-46.3); Red Blood Count 3.78 M/uL (4.2-5.4); White Blood Count 5.58 K/uL (4.8-10.8)
[2021-06-25 07:28] LABS: BUN Creatinine Ratio 17.4 (10-20); Creatinine Clr Calc Pharmacy 139.8 ml/min; Est GFR (African American) 137.9 ml/min; Potassium 3.6 mmol/L (3.5-5.1)
[2021-06-25] MEDS: FOLIC ACID 1 MG TAB PO SCH (08:17)
[2021-06-25] MEDS: CYANOCOBALAMIN 500 MCG TABLET (VITAMIN B-12) PO SCH (08:17)
[2021-06-25] MEDS: THIAMINE HCL 100 MG in SYRINGE 9 ML IV SCH (08:17)
[2021-06-25] MEDS: DAPTOmycin 300 MG in SYRINGE 0 ML IV SCH (13:09)
--- NOTE | 2021-06-25 18:15 | Hospitalist Progress Note ---
Date of Service June 25, 2021 Assessment & Plan (1) Left radial nerve palsy: Plan: - Wrist drop with impaired digit extension; tricep weakness - CT/MRI negative for pathology or CVA; Cervical spine with some DDD but no significant central canal stenosis - OT - Passive ROM exercises and active for musles she can move - Neurology evaluated -- Prognosis is favorable but may require 3-4 month improvement -- Outpatient EMG in 3-4 weeks (2) Ataxia: Plan: - Ataxia may be related to mix of cerebellar dysfunction and peripheral neuropathy - Recommend EMG as outpatient - PT/OT; utilize ambulatory assistive devices which seems to help with steadiness - Folate WNL; B12 in normal limits but may benefit from further supplementation to build stores; does take a B1 vitamin at home -- peripheral neuropathy is likely in setting of chronic alcoholism (3) Alcoholism: Plan: - Chronic alcoholism - patient reporting 4 beers/day however discussed with daughter and she reports consumption is higher possibly double that - No active signs of withdrawal at this time - Ativan PRN - Continue B12/folate/thiamine supplementation (4) Hypertension: Plan: - STABLE - Hold blood pressure medications at this time -- Discussed with patient and daughter - pt is on 3 medications and possibly lower BPs contributing to unsteadiness? -- Discussed with daughter about routine BP monitoring to see if this could be contributing (5) Aneurysm of right vertebral artery: Plan: - Incidental finding of 5 mm saccular aneurysm in the R vertebral artery - Will need neurovascular F/U in next 3-4 weeks for monitoring (6) Positive blood culture: Plan: - 2/2 BCx going staph species and awaiting further identification; jose a 2 more prior to Abx administration and they are preliminary no growth - possible first 2 simply contamination? - Clinical picture does not seem bacteremic as afebrile, no leukocytosis, no fever, and hemodynamically stable - Will cover with Daptomycin empirically until cultures identify Plan: Disposition: - PT/OT - consideration for inpatient/outpatient rehab - accepted to [facility] - discharge pending culture identification - Await blood culture Admission and Anticipated Discharge Date Admission Date: June 23, 2021 Subjective Pt reports feeling well today. Still working on movement with her L wrist. Ambulates to the bathroom with the walker rather steadily. No signs of withdrawal at this time. Did have HRs in the 140s with cleaning up this AM and intermittently low 100 readings during the day. Her last reported drink was a round 11 AM on day of admission. Remains afebrile, no leukocytosis, BP stable Review of Systems Constitutional: no fever, no chills and no fatigue Eyes: no worsening vision Ear, Nose, Mouth, Throat: no nasal congestion and no sore throat Respiratory: no cough and no chest congestion Cardiovascular: no chest pain, no dyspnea, no orthopnea and no lightheadedness Gastrointestinal: no abdominal pain, no nausea and no vomiting Genitourinary: no dysuria Musculoskeletal: no joint pain Integumentary: multiple skin tears Neurologic: + unsteadiness (improved with walker) and + numbness (bilateral bottoms of feet) Psychiatric: + forgetful Physical Exam Constitutional: no acute distress and not ill appearing Eyes: + anicteric sclerae ENMT: external ear and nose normal, oropharynx normal Neck: trachea midline, no thyromegaly Respiratory: normal respiratory effort, lungs clear to auscultation Cardiovascular: RRR, no murmur, no edema Gastrointestinal (Abdomen): normal bowel sounds, soft, nontender, no hepatosplenomegaly Neurologic: + L wrist drop unable to actively flex/extend Psychiatric: A+Ox3, euthymic affect Results & Data Results & Data ([facility]) Vital Signs (Past 12 Hours) Vital Signs Temp Pulse Pulse Pulse Resp BP Pulse Ox 06/25/21 15:55 101 H 06/25/21 15:00 36.5 C 89 16 128/82 97 06/25/21 11:51 36.7 C 106 H 18 111/77 97 06/25/21 07:46 73 06/25/21 07:02 36.6 C 99 H 18 115/72 95 PG Care Time/CCT Total # of Minutes Spent Total Time Spent with Patient: Total time spent is greater than 50% in coordination of care (as documented) at patient's floor/unit and/or counseling patient: Coding Level of Care Code 20503 Subseq Hosp Care Lvl 3 Diagnoses Left radial nerve palsy G56.32 Ataxia R27.0 Alcoholism F10.20 Hypertension I10 Aneurysm of right vertebral artery I72.6 Positive blood culture R78.81
[2021-06-26] MEDS: FOLIC ACID 1 MG TAB PO SCH (08:39)
[2021-06-26] MEDS: CYANOCOBALAMIN 500 MCG TABLET (VITAMIN B-12) PO SCH (08:39)
[2021-06-26] MEDS ORDERED: THIAMINE HCL 100 MG TAB PO SCH (09:00)
--- NOTE | 2021-06-26 09:56 | Neurology Progress Note ---
Date of Service June 26, 2021 Assessment & Plan (1) Left radial nerve palsy: (2) Ataxia: (3) Peripheral neuropathy: Plan: Patient has severe left upper extremity weakness particularly distally with wrist drop. She is weak proximally however and I suspect either a cervical radiculopathy or brachial plexopathy. This seems more than just an isolated radial nerve palsy, in the upper arm. A typical "Wednesday night palsy" spares the triceps. I note on her MRI of the cervical spine she has considerable degenerative changes at C4-5 and C6-7. She does not have spinal stenosis or cord issues however. Patient has a peripheral neuropathy which is likely secondary to alcoholism versus nutritional. I do not believe she is as ataxic now she was on admission. Her tremor is not evident today either. She has been getting B vitamins. Patient has no nystagmus, ophthalmoplegia, or cognitive dysfunction consistent with encephalopathy. There was no evidence for stroke by MRI of the brain. Recommendations: 1. recommend EMG nerve conduction study of the left upper extremity as an outpatient to evaluate for radiculopathy versus pure radial nerve palsy. We could also do the lower extremities to evaluate extent and severity of polyneuropathy. 2. Increase activity as able and continue with physical and occupational therapy. Apparently the patient has been accepted at [facility] 3. improved nutrition and discontinue all alcohol usage. 4. Discontinue cigarette smoking if able also. Overall, I spent a total of 35 minutes with this case including review of records, review of MRI films, direct evaluation the patient bedside, and discussion of the case with the patient and RN at bedside. Admission and Anticipated Discharge Date Admission Date: June 23, 2021 Subjective patient has no pain in her neck or upper extremities . She is not dizzy. Her mood is good and she has no headache. She does not feel shaky or having a rapid heart rate. MRI of the brain showed no acute stroke. MRI of the cervical spine showed moderate spondylosis at C4-5 and C6-7 without cord compression. I reviewed these films. She has lost weight and is down to 103 lb. Typically she is about 120 lb. She has bruising on her skin that come spontaneously. Yesterday, sodium was 128. magnesium was normal at 1.9. B12, folate, Chem profile were otherwise unremarkable. I note on June 23 TSH was elevated at 6.4. Patient's alcohol level was elevated on admission. Results & Data ([facility]) Vital Signs (Past 12 Hours) Vital Signs Temp Pulse Pulse Pulse Resp BP Pulse Ox 06/26/21 07:02 36.6 C 83 18 123/76 93 06/26/21 04:55 75 06/26/21 03:22 36.6 C 73 17 116/77 95 06/25/21 22:45 36.6 C 91 H 19 132/74 94 Exam (Neuro) Physical Exam: She is awake and alert. Speech is without aphasia or dysarthria. Mood is normal and affect is appropriate. Thought processes are intact with reasonable ability to converse. I suspect some short-term memory however. she is pleasant and cooperative. Blood pressure is 123/76 and pulse is normal in the 80s. Respiratory rate comfortable at 18 and she showed no signs of withdrawal. Extraocular eye muscles are intact without nystagmus. There is no facial droop and tongue is midline. There is no ataxia with the arms. Motor strength is 5/5 diffusely in the right arm and leg both proximally and distally. Left lower extremity is 4/5 proximally and 5/5 distally. The left upper extremity has 4/5 strength in the deltoid and 3/5 strength in the triceps. Biceps is closer to 5/5. Wrist flexor and second chef is 4/5. Wrist extensor is 0/5. Reflexes are 1/4 in the biceps, triceps, brachioradialis, and quadriceps tendons bilaterally. Achilles tendon reflexes are absent bilaterally. Toes are downgoing to plantar stimulation bilaterally. PG Care Time/CCT Total # of Minutes Spent Total Time Spent with Patient: Total time spent is greater than 50% in coordination of care (as documented) at patient's floor/unit and/or counseling patient: Coding Level of Care Code 12461 Subseq Hosp Care Lvl 3 Diagnoses Left radial nerve palsy G56.32 Ataxia R27.0 Peripheral neuropathy G62.9 Time Spent (min) 35
[2021-06-26] MEDS: DAPTOmycin 300 MG in SYRINGE 0 ML IV SCH (11:55)
[2021-06-26 15:00] LABS: BUN Creatinine Ratio 31.3 (10-20); Calcium 8.9 mg/dl (8.5-10.1); Creatinine Clr Calc Pharmacy 83.2 ml/min; Est GFR (African American) 116.8 ml/min; Est GFR (Non-African American) 100.8 ml/min
[2021-06-26 15:03] LABS: Thyroid Stimulating Hormone 11.1 uIu/ml (0.300-4.500)
[2021-06-26 15:29] LABS: T4 Free Thyroxine 0.6 ng/dl (0.8-1.6)
[2021-06-26] MEDS ORDERED: LEVOTHYROXINE SODIUM 25 MCG TABLET PO ONE (15:43)
--- NOTE | 2021-06-26 18:47 | Discharge Summary ---
Date of Service June 26, 2021 Admission HPI Per Admitting Provider This is a 70-year-old female with past my history of hypertension and chronic alcoholism presents today with a left upper extremity palsy. Patient may be a somewhat limited historian, she does have a family member who can fill in some details. Apparently patient has been having longstanding generalized weakness over the course of months. The family member notes that the patient has had some ataxia and has had issues with falling. Patient has multiple skin tears which should be dressed by nursing. Patient notes that she was having some mild numbness on the soles of her feet. However, more concerning was a left upper extremity weakness, mostly in her hand and wrist. This is also been longstanding for several months but became much worse in the last 48 hours. Patient denies any injury to this area or periods of extended compression. She has difficulty extending her fingers or her wrist. She does admit that this is much worse. Family member notes the patient was diagnosed with Lyme disease approximately 2 years ago. Patient had an extended antibiotic course but I feel that the patient's weakness never resolved and may have started around this area. They state that the patient used to be very active but now she spends a lot of time at home consuming alcohol. Outpatient is unclear how much alcohol she drinks, she will say 45 beers but the family member feels that it is much more than th is. Patient's last drink was at 11:00 this morning. Principal Diagnosis L Wrist Drop; Ataxia; Hypothyroidism Discharge Exam PHYSICAL EXAM General Appearance: Thin body habitus; 70 y/o female in NAD who is A&O x 3 but easily forgetful HEENT: Head is normocephalic/atraumatic; Hearing grossly intact; Mucous membranes moist; Pharynx negative for exudate/lesions Neck: Supple; Trachea midline Heart: RRR with no M/G/R Lungs: CTA in all lung [place] bilaterally; Respirations unlabored; Neg accessory muscle use Abdomen: Soft, non-tender, non-distended; Positive BS x 4 quadrants; Neg organomegaly Extremities: Capillary refill < 2 seconds; Neg cyanosis or edema Neurological: + L wrist drop; gait steady with use of walker; Speech clear Psychiatric: Appropriate mood/affect; forgetful Skin: Normal Color; Warm/Dry; Neg rashes; scattered bruising and skin tears Discharge Data Allergies Allergy/AdvReac Type Severity Reaction Status Date / Time clindamycin Allergy Unknown RASH Verified 06/23/21 16:34 Penicillins Allergy Unknown RASH Verified 06/23/21 16:34 Consultations 06/23/21 17:45 ED Decision to Admit Stat 06/23/21 18:51 Consult Neurology Routine Ordered Studies Head CT 06/23/21 15:[address] OF THE BRAIN; CT ANGIOGRAM OF THE BRAIN; CT ANGIOGRAM OF THE NECK CLINICAL HISTORY: Left-sided weakness and numbness. COMPARISON STUDY: MRI of the brain dated 07/01/2017. TECHNIQUE: Unenhanced axial CT scan of the brain is performed. Subsequently, following the IV administration of 120 of Optiray 320, CT angiogram of the head and neck was performed from the aortic arch to the vertex. Images are reviewed in the axial, sagittal, and coronal planes. 3-D MIPS images are created and assessed. IV contrast was administered without complication. All measurements were calculated based on NASCET criteria. A dose lowering technique was utilized adhering to the principles of ALARA. CT DOSE: 843.91 mGy.cm FINDINGS: Brain parenchyma: There is age-related involutional change noting mild to moderate patchy subcortical and periventricular microangiopathic disease. There is no hemorrhage, mass effect, or evidence of acute territorial ischemia by CT criteria. There is no evidence of enhancing mass lesion on the angiogram phase images. The ventricles, sulci, and cisterns are prominent secondary to involutional change. Lai-white matter differentiation is preserved. No extra- axial fluid collection is seen. Thoracic aorta: Visualized portions of the thoracic aorta are normal in caliber. The aortic arch demonstrates 4-vessel variant anatomy. The left vertebral artery arises directly from the thoracic aorta. Right carotid arterial system: The right common carotid artery is widely patent, as are the right internal and external carotid arteries. Minimal plaque is seen in the carotid bulb. Left carotid arterial system: The left common carotid artery is widely patent, as are the left internal and external carotid arteries. Mild plaque is noted in the carotid bulb. Vertebral arteries: The vertebral arteries are widely patent bilaterally noting a right-sided dominance. 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 This is located at the level of C7. Subclavian arteries: Widely patent bilaterally. Intracranial vasculature: There is atherosclerotic calcification of the cavernous carotid arteries. There is a large right posterior indicating artery. There is ectasia of the internal carotid arteries bilaterally. The internal carotid arteries are patent at the skull base, as are the anterior and middle cerebral arteries bilaterally. The vertebrobasilar system and posterior cerebral arteries are widely patent. The right P1 segment is diminutive. The right vertebral artery is dominant. No definite aneurysm is identified. There is no high-grade stenosis or focal vessel cutoff identified. Jugular veins: Patent bilaterally. Dural sinuses: Patent. Lung apices: Emphysematous change is noted. Upper lobe lung parenchyma is otherwise clear as imaged. Soft tissues: The visualized pharyngeal soft tissues are normal in appearance noting angiographic phase technique. The oropharyngeal airway appears widely patent. The salivary and thyroid glands are normal in appearance. No cervical l ymphadenopathy is seen. Skeletal structures: The skeletal structures are osteopenic. The calvarium appears intact. The cervical spine is maintained noting mild multilevel spondylosis. No lytic or blastic lesion is seen. Orbits: The bony orbits are intact. Orbital contents are normal as visualized. Sinuses and mastoids: The paranasal sinuses are clear. The mastoid air cells are well pneumatized. IMPRESSION: 1. There is no hemorrhage, mass effect, or evidence of acute territorial ischemia by CT criteria. 2. Unremarkable CT angiogram of the brain. 3. 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 4. Otherwise unremarkable CT angiogram of the neck. 5. Emphysema. ACT 112: Negative or not required by law. Electronically signed by: Irving Lopez M.D. 06/23/2021 5:09 PM Head/Neck CTA 06/23/21 15:[address] OF THE BRAIN; CT ANGIOGRAM OF THE BRAIN; CT ANGIOGRAM OF THE NECK CLINICAL HISTORY: Left-sided weakness and numbness. COMPARISON STUDY: MRI of the brain dated 07/01/2017. TECHNIQUE: Unenhanced axial CT scan of the brain is performed. Subsequently, following the IV administration of 120 of Optiray 320, CT angiogram of the head and neck was performed from the aortic arch to the vertex. Images are reviewed in the axial, sagittal, and coronal planes. 3-D MIPS images are created and assessed. IV contrast was administered without complication. All measurements were calculated based on NASCET criteria. A dose lowering technique was utilized adhering to the principles of ALARA. CT DOSE: 843.91 mGy.cm FINDINGS: Brain parenchyma: There is age-related involutional change noting mild to moderate patchy subcortical and periventricular microangiopathic disease. There is no hemorrhage, mass effect, or evidence of acute territorial ischemia by CT criteria. There is no evidence of enhancing mass lesion on the angiogram phase images. The ventricles, sulci, and cisterns are prominent secondary to involut ional change. Lai-white matter differentiation is preserved. No extra-axial fluid collection is seen. Thoracic aorta: Visualized portions of the thoracic aorta are normal in caliber. The aortic arch demonstrates 4-vessel variant anatomy. The left vertebral artery arises directly from the thoracic aorta. Right carotid arterial system: The right common carotid artery is widely patent, as are the right internal and external carotid arteries. Minimal plaque is seen in the carotid bulb. Left carotid arterial system: The left common carotid artery is widely patent, as are the left internal and external carotid arteries. Mild plaque is noted in the carotid bulb. Vertebral arteries: The vertebral arteries are widely patent bilaterally noting a right-sided dominance. 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 This is located at the level of C7. Subclavian arteries: Widely patent bilaterally. Intracranial vasculature: There is atherosclerotic calcification of the cavernous carotid arteries. There is a large right posterior indicating artery. There is ectasia of the internal carotid arteries bilaterally. The internal carotid arteries are patent at the skull base, as are the anterior and middle cerebral arteries bilaterally. The vertebrobasilar system and posterior cerebral arteries are widely patent. The right P1 segment is diminutive. The right vertebral artery is dominant. No definite aneurysm is identified. There is no high-grade stenosis or focal vessel cutoff identified. Jugular veins: Patent bilaterally. Dural sinuses: Patent. Lung apices: Emphysematous change is noted. Upper lobe lung parenchyma is otherwise clear as imaged. Soft tissues: The visualized pharyngeal soft tissues are normal in appearance noting angiographic phase technique. The oropharyngeal airway appears widely patent. The salivary and thyroid glands are normal in appearance. No cervical lymphadenopathy is seen. Skeletal structures: The skeletal structures are osteopenic. The calvarium appears intact. The cervical spine is maintained noting mild multilevel spondylosis. No lytic or blastic lesion is seen. Orbits: The bony orbits are intact. Orbital contents are normal as visualized. Sinuses and mastoids: The paranasal sinuses are clear. The mastoid air cells are well pneumatized. IMPRESSION: 1. There is no hemorrhage, mass effect, or evidence of acute territorial ischemia by CT criteria. 2. Unremarkable CT angiogram of the brain. 3. 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 4. Otherwise unremarkable CT angiogram of the neck. 5. Emphysema. ACT 112: Negative or not required by law. Electronically signed by: Irving Lopez M.D. 06/23/2021 5:09 PM Elbow/Forearm/Wrist X-Ray 06/23/21 16:04 XR elbow LT min 3V routine, XR forearm LT 2V, XR wrist LT w scaphoid CLINICAL HISTORY: Fall. Left arm weakness and pain. Left elbow, forearm and wrist pain. COMPARISON STUDY: None. FINDINGS: Mild soft tissue swelling within the proximal posterior forearm/elbow. No elbow effusion. There is an old nonunited fracture at the ulnar styloid. No acute fracture or dislocation within the left elbow, left forearm, or left wrist. The bones are osteopenic. Mild dorsal soft tissue swelling within the wrist. The scaphoid appears intact. IMPRESSION: No acute fractures within the left forearm, left wrist, or left elbow. ACT 112: Negative or not required by law. Electronically signed by: Romeo Jha M.D. 06/23/2021 4:31 PM Brain MRI 06/23/21 18:49 MRI OF THE BRAIN WITHOUT IV CONTRAST CLINICAL HISTORY: Left-sided weakness and numbness. COMPARISON STUDY: CT of the brain dated 06/23/2021. TECHNIQUE: MRI of the brain was performed utilizing various T1 and T2-weighted sequences in the axial, sagittal, and coronal planes. IV contrast was not administered for this examination. FINDINGS: Brain parenchyma: There is age-related involutional change noting mild subcortical and periventricular microangiopathic disease. There is no hemorrhage or mass effect. There is no restricted diffusion to suggest acute ischemia. Lai-white matter differentiation is preserved. No extra-axial fluid collection is seen. The cerebellar tonsils are normal in configuration. Ventricles, sulci, and cisterns: Prominent secondary to involutional change. Pituitary and sella: Unremarkable. Intracranial vasculature: Normal flow voids are maintained at the skull base. Orbits: The bony orbits are grossly intact. Orbital contents are normal in appearance. Sinuses and mastoids: Clear. Calvarium: Unremarkable. Cervical cord: Partially visualized cervical spinal cord is normal in morphology and signal intensity. IMPRESSION: No acute intracranial abnormality. ACT 112: Negative or not required by law. Electronically signed by: Irving Lopez M.D. 06/23/2021 8:50 PM Cervical Spine MRI 06/23/21 18:49 CERVICAL SPINE MRI HISTORY: Left upper extremity weakness. TECHNIQUE: Multiplanar multisequence MRI of the cervical spine was performed without the use of contrast. COMPARISON STUDY: None. FINDINGS: No fracture or subluxation within the cervical spine. Mild disc space narrowing at C4-C5, C5-C6, and C6-C7. The cervical spinal cord demonstrates a normal signal intensity. No osseous lesions identified within the cervical spine. Prevertebral soft tissues and the C1-C2 interval are intact. Mild facet degenerative changes throughout the cervical spine. C2-C3: No significant central canal or neural foraminal narrowing. C3-C4: No significant central canal narrowing. Mild bilateral neural foraminal narrowing due to the uncovertebral hypertrophy. C4-C5: Small broad-based posterior disc osteophyte complex asymmetric to the left. This abuts and slightly deforms the left anterior cord consistent with mild central canal narrowing. There is also moderate to severe left-sided neural foraminal narrowing due to the uncovertebral hypertrophy. C5-C6: Small broad-based posterior disc osteophyte complex without significant central canal or left-sided neural foraminal narrowing. There is moderate right- sided neural foraminal narrowing due to the uncovertebral hypertrophy. C6-C7: Small broad-based posterior disc bulge without significant central canal narrowing. There is mild right and severe left neural foraminal narrowing due to the uncovertebral hypertrophy. C7-T1: No significant central canal or neural foraminal narrowing. IMPRESSION: 1. No fracture or dislocation within the cervical spine. 2. Multilevel mild cervical spondylosis as described above most pronounced at the C4-C5 level which demonstrates mild central canal narrowing. 3. Multilevel bilateral neural foraminal narrowing primarily due to the uncovertebral hypertrophy. ACT 112: Negative or not required by law. Electronically signed by: Romeo Jha M.D. 06/24/2021 9:38 AM Hospital Course (1) Left radial nerve palsy: - Wrist drop with impaired digit extension; tricep weakness - CT/MRI negative for pathology or CVA; Cervical spine with some DDD but no significant central canal stenosis; possibly some cervical radiculopathy vs brachial plexopathy? - Neurology evaluated - [facility] [place] [facility] -- Prognosis is favorable but may require 3-4 month improvement -- Outpatient EMG in 3-4 weeks (2) Ataxia: - Ataxia may be related to mix of cerebellar dysfunction and peripheral neuropathy - Recommend EMG as outpatient in 3-4 weeks - PT/OT; utilize ambulatory assistive devices which seems to help with steadiness - Folate WNL; B12 in normal limits but may benefit from further supplementation to build stores; does take a B1 vitamin at home -- peripheral neuropathy is likely in setting of chronic alcoholism (3) Alcoholism: - Chronic alcoholism - patient reporting 4 beers/day however discussed with daughter and she reports consumption is higher possibly double that - No active signs of withdrawal at this time - Continue B12/folate/thiamine supplementation (4) Hypertension: - STABLE - Held blood pressure medications in the hospital - family reports about a 20 lb weightloss so maybe assisted with BP control? -- Discussed with patient and daughter - pt is on 3 medications and possibly lower BPs contributing to unsteadiness? -- Discussed with daughter about routine BP monitoring to see if this could be contributing (5) Aneurysm of right vertebral artery: - Incidental finding of 5 mm saccular aneurysm in the R vertebral artery - Will need neurovascular F/U in next 3-4 weeks for monitoring (6) Positive blood culture: - 2/2 BCx going staph species however PCR negative for MRSA and s. aureus; jose a 2 more prior to Abx administration and they are preliminary no growth - possible first 2 simply contamination? - Clinical picture does not seem bacteremic as afebrile, no leukocytosis, no fever, and hemodynamically stable - Covered with Daptomycin empirically but no need for further Abx coverage (7) Hypothyroidism: - Initial TSH on admission slightly elevated with normal T4 - initial thought was possibly inflammatory reponse - Repeat TSH even higher now with T4 just slightly lower - so maybe was subacute hypothyroid and it is beginning to manifest - She doesn't completely fit with a normal hypothyroid picture but maybe contributing to her memory deficits, lack of hunger, bruising, and nerve issues? - Started Synthroid 25 mcg daily and recommend TSH/T4 recheck in 6 weeks (8) Hyponatremia: - Improved (9) Underweight: - BMI 18.4 - Progressive weight loss of approx. 20 lbs unintentional - Pt is scheduled for colonoscopy in July; possibly alcohol related; also forgetful so may be forgetting to eat; maybe thyroid-related? Disposition: - [facility] for acute rehab - Discussed with daughter at bedside Total Time Total Time Spent Total Time Spent (In Minutes): Greater than 30 minutes Discharge Plan Discharge Items Patient Disposition: Transfer Inpatient Rehab Fac Reason For Visit: ATAXIA, LUE PALSY Discharge Diagnosis: Left Wrist Drop and Ataxia Condition on Discharge: Fair Activity: Resume your previous activity Non-emergency contact: Primary Care Provider Call non-emergency contact if: you have any medication questions, your symptoms worsen and your pain is not controlled Follow-up/Referrals: Virginia Barillas PA-C [Primary Care Provider] - Diet: Regular Addtl Attending Provider Instructions: Left radial nerve palsy vs Cervical Radiculopathy or Brachial Plexopathy: - There is degenerative changes in the cervical spine on MRI but no spinal stenosis or cord issues - Continue ROM exercises - currently with the wrist movement is with passive movement - She was seen by [facility] [place] [facility] -- Recommending EMG in 3-4 weeks to better determine etiology Ataxia: - May be a mix of neuropathy vs other - seems to have greatly improved with use of a walker - CT/MRI of the brain did not reveal a stroke or pathology - Neurology is recommending a EMG of the lower legs in 3-4 weeks as well and this would need arranged - Neuropathy may be related to chronic alcohol usage. - B12 and Folate are WNL but will continue supplementation; will continue thiamine supplementation -- Could consider increasing dosage if needed Alcoholism: - Patient reports about 4 beers/day but it appears this may be more and she is forgetful - No active signs of withdrawal while in the hospital; forgetful at baseline - Continue supplementation and encourage cessation Hypothyroidism: - Initial TSH elevated with normal T4 however now TSH high with low T4 -- Initially suspected elevated TSH could be inflammatory based but now with a lower T4 this will need monitored - Possibly some of these symptoms may be related to hypothyroidism, however not completely fitting - Will start Synthroid 25 mcg daily with TSH and T4 recheck in 6 weeks Hypertension: - She has had a normal blood pressure in the hospital and have held her blood pressure medications - Not certain if these need continued and maybe with her weight loss this has improved her blood pressure - Did talk with patient and daughter about monitoring this as she may not need all of these medications - She is on amlodipine 10 mg daily; atenolol 50 mg daily, benazepril 20 mg daily Aneurysm of Right Vertebral Artery: - Incidental finding of 5 mm saccular aneurysm in the right vertebral artery - Needs a neurovascular appointment in 3-4 weeks for establishment of care and monitoring/intervention if warranted Positive Blood Culture: - First set of blood culture with staph with PCR negative for MRSA and Staph aureus - redrew another set of cultures before starting antibiotics that are negative - it appears the first set was both contaminated - However did cover with a course of Daptomycin and has not had any signs/symptoms suggestive of bacteremia Pending Studies at Discharge: No Stand-Alone Forms: My [facility] Skilled Items Patient informed of condition?: Yes DNR: No Discharge Level of Care: Acute rehab Communicable Disease: No Discharge Prognosis: Stable Lines: None Urinary Catheter: No Medications and DC Order Prescriptions: New cyanocobalamin (vitamin B-12) 500 mcg Tablet 500 mcg PO QAM 30 Days Qty: 30 RF: 0 folic acid 1 mg Tablet 1 mg PO QAM 30 Days Qty: 30 RF: 0 thiamine HCl (vitamin B1) [Vitamin B-1] 100 mg Tablet 100 mg PO QAM 30 Days Qty: 30 RF: 0 levothyroxine [Synthroid] 25 mcg tablet 25 mcg PO DAILY 30 Days Qty: 30 RF: 0 Continued amlodipine 10 mg Tablet 10 mg PO QAM RF: 0 benazepril 20 mg Tablet 20 mg PO QAM RF: 0 atenolol 50 mg Tablet 50 mg PO QAM RF: 0 Discharge Orders: Discharge Order (Routine); Ordered 06/26/21 Ordered By: Suad Luna Admission Data Admit Date/Time: 06/23/21 18:49 Attending Provider: Luis F Fragoso Admit Provider: Kiko Mars Primary Care Provider: Virginia Barillas Other Providers: Manuel Jung ; Kiko Mars ; [facility] Other Interventions: Discharge Summary Assessment (RN) Last Done: 06/26/21 16:21 Supervising Physician Co-Signing Physician Notes Attending note: patient seen and examined with Suad Luna PA-C. I agree with her discharge summary. I personally reviewed the labs and imaging findings. patient coming along, ready for rehab she and I had a discussion about importance of stopping alcohol as well as cigarettes discussed dangers of continued alcohol abuse including further neuropathy and falls and injury not to mention cirrhosis and the poor quality of life that would cause she vocalized that she understands, will make an effort to stop drinking - Neuropathy, falls, wrist drop will go to rehab follow up with neurology for EMG for the wrist drop Coding Level of Care Code D/C DAY MANAGEMENT >30 MINS Diagnoses Left radial nerve palsy G56.32 Ataxia R27.0 Alcoholism F10.20 Hypertension I10 Aneurysm of right vertebral artery I72.6 Positive blood culture R78.81 Hyponatremia E87.1 Underweight R63.6 Hypothyroidism E03.9
== END 2021-06-26 17:38 | DRG 74 ==
LOC: ED 14:29 → 2N 18:49 → SUATTDRO 18:49 → 2N 20:37